=== PATIENT | female | born 1990 | race Caucasian/White ===

== ENCOUNTER 2017-03-28 08:59 | Day surgery (SDC) | payer OTHER ==
[2017-03-28 09:26] VITALS: BMI 34.9
[2017-03-28 09:33] VITALS: BP 120/68; TEMP 98.6
[2017-03-28] MEDS ORDERED: Acetaminophen 500 MG TAB PO PRN (10:32)
--- NOTE | 2017-03-28 10:32 | PDOC.LDHP ---
Labor and Delivery H&P Chief complaint: other HPI: 27 yo @ 37w4d by LMP consistent with 11w4d US presents for iron infusion. She denies any vaginal bleeding, contractions, or vaginal discharge. She does admit to movement. She denies n/v/d. She states she has not been lightheaded or dizzy. She notes that she does have some fatigue. She has no other complaints at this time. Current gestational age (weeks): 37 (37w4d) Due date: 04/14/17 Dating criteria: last menstrual period, first trimester ultrasound Grav: 2 Para: 1 Current complications: gestational diabetes, other (Anemia of ) Current medications: pre-sj vitamins, other (Metformin 500 mg BID) Previous surgical history: none Social history: none - Physical Exam Vital signs reviewed and normal: yes General: NAD Heart: RRR Lungs: CTAB Abdomen: gravid Extremeties: no edema FHT: category 1 [place] contractions every: None present - OB Labs Blood type: A RH: positive Antibody Screen: negative HIV: negative RPR: negative HEPSAg: negative 1 hour GCT: positive 3 hour GTT: positive GBS: unknown Urine drug screen: not done Rubella: immune - Assessment 1. Term Intrauterine 2. Iron deficiency anemia 3. Gestational Diabetes - Plan -: 1. Term Intrauterine -27 yo @ 37w4d by LMP consistent with 11w4d US. -Continue routine care 2. Iron deficiency anemia -Iron transfusion -Recommend outpatient follow up for H&H 3. Gestational Diabetes -Continue Metformin as outpatient -Glucose checks <Tarun Yap - Last Filed: 03/28/17 10:29> <Onelia Killian - Last Filed: 03/29/17 13:09> Allergies/Adverse Reactions: Allergies Allergy/AdvReac Type Severity Reaction Status Date / Time No Known Allergies Allergy Verified 03/28/17 09:20 Attending Addendum - Attending Addendum I personally evaluated the patient and discussed the management with Dr. Yap I agree with the History, Examination, Assessment and Plan documented above with any addition or exceptions noted below. Doing well. Asymptomatic. Not responding to PO iron. Iron infusion completed today without complications. D/C to home. FHT cat 1. No contractions. Routine follow up with PNC. ABrayMD <Onelia Killian - Last Filed: 03/29/17 13:09>
[2017-03-28] MEDS ORDERED: Iron Sucrose Complex 500 MG in Sodium Chloride 0.9% 250 ML 250 ML IVPB SCH (10:45)
[2017-03-28] MEDS ORDERED: Sodium Chloride 0.9% 1,000 ML IV SCH (10:45)
== END 2017-03-28 15:34 | disposition home or self-care (01) ==
LOC: L&D/OP 08:59
PROVIDERS: ATTEND Student in an Organized Health Care Education/Training Program
DX: O99.013 Anemia complicating pregnancy, third trimester (principal); D50.9 Iron deficiency anemia, unspecified; O24.419 Gestational diabetes mellitus in pregnancy, unspecified control; Z79.84 Long term (current) use of oral hypoglycemic drugs; Z79.899 Other long term (current) drug therapy; Z3A.37 37 weeks gestation of pregnancy
CPT/HCPCS: 96361; 96365; 96366; 99283; J1756; J7050

== ENCOUNTER 2017-04-03 09:56 | Inpatient (IN) | payer MEDICAID, OTHER, SELFPAY ==
[2017-04-03 10:33] VITALS: BMI 34.7
[2017-04-03] MEDS ORDERED: Ondansetron HCl/PF 4 MG/2 ML Vial IVP PRN ×2 (11:40→20:27)
[2017-04-03] MEDS ORDERED: Lidocaine 1% (PF) 30 ML VIAL SC PRN (11:40)
[2017-04-03] MEDS ORDERED: Promethazine HCl 25 MG/ML VIAL IM PRN (11:40)
[2017-04-03] MEDS ORDERED: Acetaminophen 500 MG TAB PO PRN (11:40)
[2017-04-03] MEDS ORDERED: Penicillin G Potassium 5 MILL.UNITS in Sodium Chloride 0.9% 100 ML IVPB SCH (11:40)
--- NOTE | 2017-04-03 11:51 | PDOC.LDHP ---
Addendum entered and electronically signed by Tarun aYp MD 04/03/17 11: 55: Patient also on metformin for GDM, will hold. Original Note: Labor and Delivery H&P Chief complaint: contractions HPI: 27 yo @ 38w3d by 11w4d US not consistent with LMP presents with contractions that began early this morning. She states the contractions are 5- 10 minutes apart and are strong enough to take her breath away. She also notes positive movement. She does admit to some slightly bloody vaginal discharge, but no large loss of fluid. She states she had a with her first around the same gestation. She has no other concerns. Current gestational age (weeks): 38 (38w3d) Due date: 04/14/17 Dating criteria: first trimester ultrasound Grav: 2 Para: 1 Current complications: gestational diabetes, other (anemia of ) Abnormal US findings: No Past Medical History: None Current medications: pre-sj vitamins, iron Previous surgical history: none Social history: none - Physical Exam Vital signs reviewed and normal: yes General: NAD, breathing through contractions Heart: RRR Lungs: CTAB Abdomen: gravid Extremeties: no edema FHT: category 1 [place] contractions every: 5 minutes - Vaginal Exam cm dilated: 4 Effacement: 75% Station: -1 - OB Labs Blood type: A RH: positive Antibody Screen: negative HIV: negative RPR: negative HEPSAg: negative 1 hour GCT: positive 3 hour GTT: positive GBS: positive Urine drug screen: not done Rubella: immune - Assessment L&D Assessment: term patient in labor - Plan Plan: admit to L&D, labor augmentation if indicated, GBS antibiotic prophylaxis , anesthesia consult for pain management -: 1. TIUP, latent labor -Admit to L&D for monitoring -q2h cervical checks -Continue routine care 2. Gestational DM -Check glucose levels -hold metformin 3. Anemia of -CBC -Iron supplementation after delivery <Tarun Yap - Last Filed: 04/03/17 11:49> <Cyndy Dorado - Last Filed: 04/03/17 12:54> Allergies/Adverse Reactions: Allergies Allergy/AdvReac Type Severity Reaction Status Date / Time No Known Allergies Allergy Verified 03/28/17 09:20 Attending Addendum - Attending Addendum I personally evaluated the patient and discussed the management with Dr. Yap. I agree with the History, Examination, Assessment and Plan documented above with any addition or exceptions noted below.- 27 year old @ 38.3 weeks by 6 and 11 week USG presented c/o ctx. No LOF. (+) bloody show (+) FM. complicated by GDM on metformin. Afebrile VSS A/P: 1) IUP @ 38.3 weeks in active labor- initial exam 4/75%/-2; recheck 6/C/-1. Admit to L&D; pt desires epidural for pain management. Continue expectant managment. 2) GBS (+)- start PCN prophylaxis. 3) GDM- BG=93; continue to monitor. Marc's 7#8. <Cyndy Dorado - Last Filed: 04/03/17 12:54>
[2017-04-03 12:22] LABS: Mean Corpuscular HGB CONC 32.4 g/dL (32.0-36.0); Mean Corpuscular Hemoglobin 22.1 pg (27.0-31.0); Mean Corpuscular Volume 68.1 fl (81.0-99.0); Mean Platelet Volume 8.4 fL (7.4-10.4); Platelet Count 394 thou/uL (130-400); RBC Distribution Width 16.8 % (11.5-14.5); Red Blood Cell (RBC) Count 4.54 mill/uL (4.20-5.40); White Blood Cell (WBC) Count 11.6 thou/uL (4.8-10.8)
[2017-04-03 12:25] LABS: Syphilis Antibody Nonreactive (Nonreactive); Syphilis Antibody Index 0.05 S/CO (<1.00 Non-Reactive)
[2017-04-03] MEDS ORDERED: Fentanyl 4 mcg/Marc 0.1% Cadd 100 ML ONE (12:26)
[2017-04-03 12:34] LABS: HBSAg Index 0.14 S/CO (0-0.99); Hep B Surf Ag Non-Reactive S/CO (NonReactive)
[2017-04-03] MEDS ORDERED: Eucerin (Mineral Oil/Petrolatum,White) 30 gm Jar TOP PRN (13:15)
[2017-04-03] MEDS ORDERED: Fentanyl 4mcg/Marcaine 0.1% Cassette 100 ML EPIDURAL SCH (13:15)
[2017-04-03] MEDS ORDERED: ePHEDrine/0.9% NaCl/PF SYRINGE 50 mg/10 ml SLOW IVP PRN (13:15)
[2017-04-03] MEDS ORDERED: Lactated Ringer's 500 ML IV PRN (13:15)
[2017-04-03] MEDS ORDERED: Acetaminophen 325 MG TAB PO PRN (13:15)
[2017-04-03] MEDS ORDERED: diphenhydrAMINE 50 MG/ML VIAL IVP PRN (13:15)
[2017-04-03] MEDS ORDERED: Naloxone HCl 0.4 mg/ml Vial IVP PRN ×2 (13:15)
[2017-04-03] MEDS ORDERED: Communication Order-Pharmacy FS SCH (13:15)
--- NOTE | 2017-04-03 13:27 | PDOC.LDPN ---
Labor & Delivery Progress Note - Subjective Subjective: painful contractions - Objective Vital signs reviewed and normal: yes General: NAD, breathing through contractions SVE: Per Nursing staff Dilation: 6 Effacement: 100% Station: -1 FHT: category 1 [place] contractions every: 3-5 minutes Resuscitative measures: maternal oxygen, maternal IV fluids, maternal position change - Assessment (1) Term Code(s): Z34.80 - ENCOUNTER FOR SUPRVSN OF NORMAL , UNSP TRIMESTER Current Visit: Yes Status: Acute Comment: 27 yo @ 38w3d by 11w4d US presents with contractions -GBS + -Will await next cervical check and/or ROM until second dose of penicillin given -Epidural in place -Will await antibiotics until next check. Plan: continue plan of care, resuscitative measures
[2017-04-03] MEDS ORDERED: Lactated Ringer's 1,000 ML IV SCH (13:45)
[2017-04-03] MEDS: Penicillin G 2.5 MILL.units 2.5 MILL.UNITS in Premix Bag 1 BAG IVPB SCH ×2 (16:26→21:36)
[2017-04-03] MEDS: LR / Pitocin 40 units/1000 ml 1,000 ML IV PRN ×2 (17:40→19:43)
--- NOTE | 2017-04-03 18:13 | PDOC.OPDEL ---
OB Operative/Delivery Note Delivery Dr/Surgeon: Christy Assist: José Antonio Yap Pre-Delivery Diagnosis: active labor Procedure/Post Delivery Dx: spontaneous vaginal delivery Weeks gestation: 38 Anesthesia: epidural - Additional Findings/Plan Placenta delivered: spontaneous Repaired Obstetrical Laceration: 2nd degree Estimated blood loss: 300 Compilations/Other Findings: No immediate complications. Post delivery plan: routine recovery ( s/p term to female apgars 9/9. delivered OA. Optimal cord clamping performed. Cord clamped and cut, blood sampled. Placenta delivered via CCT. Uterus firmed with manual massage and IV pitocin. Second degre repaired in the usual fashion with 3-0 chromic. EBL 300 cc. No immediate complications.)
[2017-04-03] MEDS ORDERED: Benzocaine/Menthol 20-0.5% 60 ML CAN TOP PRN (20:27)
[2017-04-03] MEDS ORDERED: LR / Pitocin 40 units/1000 ml 1,000 ML IV SCH (20:27)
[2017-04-03] MEDS ORDERED: Bisacodyl 10 MG SUPP PR PRN (20:27)
[2017-04-03] MEDS ORDERED: Adacel (T-DAP) 0.5 ML VIAL IM ONE (20:27)
[2017-04-03] MEDS ORDERED: Milk Of Magnesia 30 ML UDCUP PO PRN (20:27)
[2017-04-03] MEDS ORDERED: Lanolin Ointment 7 GM TUBE TOP PRN (20:27)
[2017-04-03] MEDS: Ibuprofen 800 MG TAB PO SCH (22:15)
[2017-04-03] MEDS: Docusate (Surfak) 240 MG CAP PO SCH (22:15)
[2017-04-04 05:32] LABS: Hemoglobin 7.9 g/dL (12.0-16.0); Mean Corpuscular HGB CONC 31.6 g/dL (32.0-36.0); Mean Corpuscular Hemoglobin 21.9 pg (27.0-31.0); Mean Corpuscular Volume 69.4 fl (81.0-99.0); Mean Platelet Volume 8.2 fL (7.4-10.4); Platelet Count 318 thou/uL (130-400); RBC Distribution Width 17.4 % (11.5-14.5); White Blood Cell (WBC) Count 15.1 thou/uL (4.8-10.8)
[2017-04-04] MEDS: Ibuprofen 800 MG TAB PO SCH ×3 (05:42→21:10)
[2017-04-04] MEDS: Docusate (Surfak) 240 MG CAP PO SCH ×2 (08:59→21:10)
[2017-04-04] MEDS: Ferrous Sulfate 325 MG TAB PO SCH ×2 (08:59→17:02)
--- NOTE | 2017-04-04 11:08 | PDOC.PP ---
Post Progress Note Post Day #: 1 Subjective: no concerns. ambulating well. encouraged . PO intake tolerated: yes Flatus: yes Ambulation: yes Vital Signs (12 hours) Temp Pulse Resp BP 04/04/17 08:03 98.4 F 75 20 99/54 L 04/04/17 07:40 98.4 F 75 20 04/04/17 05:40 98.0 F 83 18 108/55 L 04/03/17 23:52 98.4 F 96 20 109/58 L Weight Weight 94.801 kg - Physical Examination General: NAD Cardiovascular: no m/r/g, RRR Respiratory: clear to auscultation bilaterally, non-labored breathing Abdominal: + bowel sounds, lochia, no distention, appropriately TTP Fundus firm & at: umbilicus Extremities: negative homans (B) Neurological: no gross focal deficits Psychiatric: A&Ox3, normal affect Result Diagrams: 04/04/17 05:05 Additional Labs: Post Labs Blood Type A POSITIVE 04/03/17 11:15 Hep Bs Antigen Non-Reactive S/CO (NonReactive) 04/03/17 11:15 (1) Term Code(s): Z34.80 - ENCOUNTER FOR SUPRVSN OF NORMAL , UNSP TRIMESTER Status: Acute Comment: 27 yo @ 38w3d by 11w4d US presents with contractions delivered at 1736 on 04/03/17 s/p 2nd degree lac repair. - pain controlled - well - plan for d/c today if baby stable for d/c - f/u 2 weeks at [facility]. discussed control options but will be limited due to insurance. (2) GBS (group B Streptococcus carrier), +RV culture, currently Code(s): O99.820 - STREPTOCOCCUS B CARRIER STATE COMPLICATING Status : Acute Comment: s/p PCN x2 doses (3) Anemia affecting Code(s): O99.019 - ANEMIA COMPLICATING , UNSPECIFIED TRIMESTER Status : Acute QualifierTitle: Trimester: third trimester Qualified Code(s): O99.013 - Anemia complicating , third trimester Comment: H&H at baseline. received iron infusion approx 1 week prior to delivery. (4) GDM, class A2 Code(s): O24.419 - GESTATIONAL DIABETES MELLITUS IN , UNSP CONTROL Status: Acute Comment: glucose well controlled. - continue meformin until follow up visit. <Moo Payne - Last Filed: 04/04/17 11:05> Vital Signs (12 hours) Temp Pulse Resp BP 04/04/17 12:00 97.9 F 77 20 04/04/17 11:51 97.9 F 77 20 109/67 04/04/17 08:03 98.4 F 75 20 99/54 L 04/04/17 07:40 98.4 F 75 20 04/04/17 05:40 98.0 F 83 18 108/55 L Weight Weight 94.801 kg Result Diagrams: 04/04/17 05:05 Additional Labs: Post Labs Blood Type A POSITIVE 04/03/17 11:15 Hep Bs Antigen Non-Reactive S/CO (NonReactive) 04/03/17 11:15 <Sp Salvador - Last Filed: 04/04/17 14:48> Attending Addendum - Attending Addendum I personally evaluated the patient and discussed the management with Dr. Payne. I agree with the History, Examination, Assessment and Plan documented above with any addition or exceptions noted below. Possible discharge later today. <Sp Salvador - Last Filed: 04/04/17 14:48>
[2017-04-05] MEDS: Ibuprofen 800 MG TAB PO SCH (06:15)
--- NOTE | 2017-04-05 08:06 | PDOC.PP ---
Post Progress Note Post Day #: 2 Subjective: Feeling well. Denies pain. Ready to go home. PO intake tolerated: yes Flatus: yes Ambulation: yes Vital Signs (12 hours) Temp Pulse Resp BP 04/04/17 21:25 98.7 F 87 20 114/63 Weight Weight 94.801 kg - Physical Examination General: NAD Cardiovascular: no m/r/g, RRR Respiratory: clear to auscultation bilaterally, non-labored breathing Abdominal: + bowel sounds, no distention, appropriately TTP Extremities: negative homans (B) Neurological: no gross focal deficits Psychiatric: A&Ox3, normal affect Result Diagrams: 04/04/17 05:05 Additional Labs: Post Labs Blood Type A POSITIVE 04/03/17 11:15 Hep Bs Antigen Non-Reactive S/CO (NonReactive) 04/03/17 11:15 (1) Term Code(s): Z34.80 - ENCOUNTER FOR SUPRVSN OF NORMAL , UNSP TRIMESTER Status: Acute Comment: 27 yo @ 38w3d by 11w4d US presents with contractions delivered at 1736 on 04/03/17 s/p 2nd degree lac repair. - pain controlled with Ibprofen - well - plan for d/c today - f/u 2 weeks at [facility]. discussed control options but will be limited due to insurance. (2) GBS (group B Streptococcus carrier), +RV culture, currently Code(s): O99.820 - STREPTOCOCCUS B CARRIER STATE COMPLICATING Status : Acute Comment: s/p PCN x2 doses (3) Anemia affecting Code(s): O99.019 - ANEMIA COMPLICATING , UNSPECIFIED TRIMESTER Status : Acute QualifierTitle: Trimester: third trimester Qualified Code(s): O99.013 - Anemia complicating , third trimester Comment: H&H at baseline. received iron infusion approx 1 week prior to delivery. (4) GDM, class A2 Code(s): O24.419 - GESTATIONAL DIABETES MELLITUS IN , UNSP CONTROL Status: Acute Comment: glucose well controlled. - continue meformin until follow up visit. <Moo Payne - Last Filed: 04/05/17 08:04> Vital Signs (12 hours) Temp Pulse Resp BP 04/05/17 12:09 97.8 F 80 20 120/70 04/05/17 08:10 98.2 F 71 20 04/05/17 08:06 98.2 F 71 20 112/61 Weight Weight 94.801 kg Result Diagrams: 04/04/17 05:05 Additional Labs: Post Labs Blood Type A POSITIVE 04/03/17 11:15 Hep Bs Antigen Non-Reactive S/CO (NonReactive) 04/03/17 11:15 <Sp Salvador - Last Filed: 04/05/17 13:09> Attending Addendum - Attending Addendum I personally evaluated the patient and discussed the management with Dr. Jackson. I agree with the History, Examination, Assessment and Plan documented above with any addition or exceptions noted below. Stable for discharge. <Sp Salvador - Last Filed: 04/05/17 13:09>
[2017-04-05] MEDS: Ferrous Sulfate 325 MG TAB PO SCH (08:07)
[2017-04-05] MEDS: Docusate (Surfak) 240 MG CAP PO SCH (08:07)
[2017-04-05] MEDS ORDERED: Acetaminophen 1,000 MG in Premix Bag 1 BAG IVPB PRN (10:19)
[2017-04-05] MEDS ORDERED: Oseltamivir 75 MG CAP PO SCH ×3 (10:20→21:00)
[2017-04-05] MEDS ORDERED: Acetaminophen 1,000 MG in Premix Bag 1 BAG IVPB SCH (11:15)
[2017-04-05] MEDS ORDERED: Ampicillin 2 GM in Sodium Chloride 0.9% 100 ML IVPB SCH (12:00)
[2017-04-05 12:10] VITALS: BP 120/70; TEMP 97.8
== END 2017-04-05 13:05 | disposition home or self-care (01) | DRG 775 ==
LOC: L&D/OP 09:56 → L&D 11:02 → 3SW 20:07
PROVIDERS: ADMIT Family Medicine; ATTEND Family Medicine
PROC: 10E0XZZ Delivery of Products of Conception, External Approach (ICD-10-PCS; principal; 2017-04-03)
PROC: 3E0234Z Introduction of Serum, Toxoid and Vaccine into Muscle, Percutaneous Approach (ICD-10-PCS; 2017-04-05)
DX: O24.425 Gestational diabetes mellitus in childbirth, controlled by oral hypoglycemic drugs (principal); O70.1 Second degree perineal laceration during delivery; O99.824 Streptococcus B carrier state complicating childbirth; Z3A.38 38 weeks gestation of pregnancy; Z37.0 Single live birth; O76 Abnormality in fetal heart rate and rhythm complicating labor and delivery
CPT/HCPCS: 36415; 36416; 51702; 76815; 85027; 86780; 87340; 90715; 99285; J2001; J2540; J7050

== ENCOUNTER 2017-04-21 11:05 | Emergency (ER) | payer MEDICAID | END 2017-04-21 12:15 | disposition home or self-care (01) | LOC: ERS 11:05 | DX: J11.1 Influenza due to unidentified influenza virus with other respiratory manifestations (principal) | CPT/HCPCS: 99283 ==

== ENCOUNTER 2017-06-12 19:48 | Emergency (ER) | payer OTHER, SELFPAY ==
[2017-06-12] MEDS ORDERED: Acetaminophen 500 MG TAB ONE (20:09)
[2017-06-12] MEDS ORDERED: Dexamethasone 4 mg/ml Vial ONE (20:51)
[2017-06-12] MEDS ORDERED: Bicillin LA 1.2 MILLION UNITS/2 ML SYRINGE ONE (20:51)
== END 2017-06-12 21:20 | disposition home or self-care (01) ==
LOC: ERS 19:48
DX: J02.0 Streptococcal pharyngitis (principal)
CPT/HCPCS: 96372; J0561; J1100

== ENCOUNTER 2018-01-16 09:16 | Emergency (ER) | payer OTHER, SELFPAY ==
[2018-01-16 09:46] LABS: #Basophils 0.1 thou/uL (0.0-0.2); #Eosinphils 0.3 thou/uL (0.0-0.7); #Lymphocytes 3.8 thou/uL (1.20-3.40); #Monocytes 0.7 thou/uL (0.11-0.59); #Neutrophils 7.3 thou/uL (1.40-6.50); %Basophils 0.6 % (0.0-1.0); %Eosinophils 2.1 % (0.0-10.0); %Lymphocytes 31.5 % (21.0-51.0); %Monocytes 5.7 % (0.0-10.0); %Neutrophils 60.1 % (42.0-75.0); Mean Corpuscular HGB CONC 32.2 g/dL (32.0-36.0); Mean Corpuscular Volume 74.7 fL (78.0-98.0); Mean Platelet Volume 7.5 fL (7.4-10.4); Platelet Count 451 thou/uL (130-400); RBC Distribution Width 14.2 % (11.5-14.5); Red Blood Cell (RBC) Count 4.99 mill/uL (4.20-5.40); White Blood Cell (WBC) Count 12.1 thou/uL (4.8-10.8)
[2018-01-16] MEDS ORDERED: Morphine 4 MG/ML VIAL ONE (09:55)
[2018-01-16] MEDS ORDERED: Ondansetron HCl/PF 4 MG/2 ML Vial ONE (09:56)
[2018-01-16 10:01] LABS: MDiff Complete? YES; Microcytosis SLIGHT = 6-15 cells (100X) (0-5/hpf); PLT Morphology Comment Appears Increased; Polychromasia SLIGHT = 2-3 cells (100X) (0-2/hpf)
[2018-01-16 10:10] LABS: ALT (SGPT) 16 U/L (8-55); AST (SGOT) 17 U/L (5-34); Albumin 4.2 g/dL (3.5-5.0); Alkaline Phosphatase 89 U/L (40-150); Anion Gap 16 mmol/L (10-20); BUN (Urea Nitrogen) 14 mg/dL (7.0-18.7); Bilirubin, Total 0.4 mg/dL (0.2-1.2); Calc. Creatinine Clearance 0 mL/min (70-130); Carbon Dioxide 18 mmol/L (22-29); Chloride 106 mmol/L (98-107); Estimated GFR-MDRD 86; Globulin 4.3 g/dL (2.4-3.5); Glucose 146 mg/dL (70-105); Lipase 40 U/L (8-78); Potassium 3.8 mmol/L (3.5-5.1); Protein, Total 8.5 g/dL (6.0-8.3); Sodium 136 mmol/L (136-145)
[2018-01-16 11:36] LABS: Bilirubin Negative (Negative); Blood, Urine Large (Negative); Clarity CLOUDY (Clear); Glucose, Urine (Dipstick) Negative (Negative); Leukocyte Small (Negative); Nitrite Negative (Negative); Protein, Urine (Dipstick) 30 mg/dL (Neg-Trace); Specific Gravity, Urine 1.019 (1.002-1.036); Urobilinogen 0.2 mg/dL (0.2-1.0); pH, Urine 5.5 (5.0-9.0)
[2018-01-16 11:43] LABS: Pregnancy Test - Urine (BHCG) Negative (Negative); Pregu Control Background? CLEAR/WHITE (CLR/WHITE); Pregu Control Bar Appear? YES (CONTROL BAR); Specific Gravity 1.019 (1.002-1.036)
[2018-01-16 11:48] LABS: Bacteria/HPF None Seen HPF (None Seen); Hyaline Casts/LPF 4-6 HYALINE CAST LPF (0-3 Hyaline); Pathc Cast-AUWi Flag 0.87 (0-2.49); RBC/HPF GREATER THAN 50-TNTC HPF (0-3)
--- NOTE | 2018-01-16 12:24 | CT ---
CT OF ABDOMEN AND PELVIS PERFORMED WITHOUT CONTRAST ENHANCEMENT: Date: 01/16/18 HISTORY: Left-sided abdomen pain. History of kidney stones. COMPARISON: 09/06/13. FINDINGS: The lung bases are clear. There are diffuse fatty changes of the liver. It measures 22 cm in length. The spleen is 10.3 cm. Gregory creas region is unremarkable. There is some foci of subtle increased attenuation of the gallbladder w hich could indicate gallstones. Right and left adrenal glands are normal in appearance. The right and left kidneys are normal in size . There is some mild left-sided hydronephrosis and hydroureter related to a left ureteral calculus lo cated at approximately the L5 level. This measures in the 5-6 mm range. No additional left renal calc tano are seen. There is what appears to be a punctate upper pole right renal calculus, nonobstructing. No significant periaortic or mesenteric adenopathy. CT of pelvis was performed without contrast enhancement. No evidence of adenopathy, mass, or free flu id. Appendix is difficult to definitively identify, but no inflammatory process. IMPRESSION: 1. Approximately 6.0 mm left ureteral calculus located at approximately the L5 level causing left-si ded hydronephrosis and hydroureter. 2. Diffuse fatty changes of the liver. 3. Possible gallstones. Ultrasound suggested for assessment of this. POS: [facility]
[2018-01-16] MEDS ORDERED: HYDROcodone/Acetaminophen 5/325 mg Tablet ONE (12:40)
== END 2018-01-16 12:52 | disposition home or self-care (01) ==
LOC: ERS 09:16
DX: N13.2 Hydronephrosis with renal and ureteral calculous obstruction (principal)
CPT/HCPCS: 36415; 74176; 80053; 81003; 81015; 81025; 83690; 85025; 96361; 96374; 96375; J2270; J2405

== ENCOUNTER 2018-04-18 08:35 | Emergency (ER) | payer SELFPAY ==
[2018-04-18] MEDS ORDERED: Ondansetron PF 4 MG/2 ML Vial ONE (08:54)
[2018-04-18] MEDS ORDERED: Morphine 4 MG/ML VIAL ONE (08:54)
[2018-04-18 09:03] LABS: #Basophils 0.1 thou/uL (0.0-0.2); #Eosinphils 0.1 thou/uL (0.0-0.7); #Lymphocytes 4.2 thou/uL (1.20-3.40); #Monocytes 0.4 thou/uL (0.11-0.59); #Neutrophils 5.3 thou/uL (1.40-6.50); %Basophils 0.9 % (0.0-1.0); %Eosinophils 0.9 % (0.0-10.0); %Lymphocytes 41.6 % (21.0-51.0); %Monocytes 3.9 % (0.0-10.0); %Neutrophils 52.7 % (42.0-75.0); Mean Corpuscular HGB CONC 32.5 g/dL (32.0-36.0); Mean Corpuscular Hemoglobin 23.2 pg (27.0-31.0); Mean Corpuscular Volume 71.6 fL (78.0-98.0); Mean Platelet Volume 7.3 fL (7.4-10.4); Platelet Count 420 thou/uL (130-400); RBC Distribution Width 14.2 % (11.5-14.5); Red Blood Cell (RBC) Count 4.74 mill/uL (4.20-5.40)
[2018-04-18 09:23] LABS: Hypochromia SLIGHT = 6-15 cells (100X) (0-5/hpf); MDiff Complete? YES; Microcytosis SLIGHT = 6-15 cells (100X) (0-5/hpf); Polychromasia SLIGHT = 2-3 cells (100X) (0-2/hpf)
[2018-04-18 09:28] LABS: ALT (SGPT) 9 U/L (8-55); AST (SGOT) 10 U/L (5-34); Albumin 3.8 g/dL (3.5-5.0); Alkaline Phosphatase 77 U/L (40-150); Anion Gap 16 mmol/L (10-20); BUN (Urea Nitrogen) 11 mg/dL (7.0-18.7); Bilirubin, Total 0.3 mg/dL (0.2-1.2); Calc. Creatinine Clearance 0 mL/min (70-130); Carbon Dioxide 17 mmol/L (22-29); Chloride 107 mmol/L (98-107); Estimated GFR-MDRD Greater than 90; Globulin 3.9 g/dL (2.4-3.5); Glucose 140 mg/dL (70-105); Potassium 3.8 mmol/L (3.5-5.1); Protein, Total 7.7 g/dL (6.0-8.3); Sodium 136 mmol/L (136-145)
--- NOTE | 2018-04-18 10:47 | ULT ---
ULTRASOUND RETROPERITONEUM COMPLETE: (RENAL) DATE: 04-18-18 HISTORY: 28-year-old female with left flank pain. FINDINGS: Right kidney: 11.5 x 4.5 x 5 cm. Left kidney: 12 x 6 x 5 cm. No right sided hydronephrosis. Mild dilation of the left renal collecting system and proximal left ureter. Bilateral renal parenchymal echogenicity and parenchymal thickness are normal. No moderate sized or large renal cysts or solid mass identified. Urinary bladder is nearly empty, and therefore it is difficult to evaluate for ureteral jets. Incidentally, there is an intrauterine gestational sac at the fundus measuring at least 2.3 cm in gre atest dimension. This was not evaluated in detail. Incidental finding of a mobile gallstone at the gallbladder fundus measuring at least [address] dimension. No pericholecystic edema. IMPRESSION: 1. Mild left hydronephrosis. 2. First trimester intrauterine gestational sac, not evaluated in detail. 3. Cholelithiasis. TEODORO Morelos POS: [facility]
[2018-04-18 10:48] LABS: Bilirubin Negative (Negative); Blood, Urine Small (Negative); Glucose, Urine (Dipstick) Negative (Negative); Leukocyte Trace (Negative); Nitrite Negative (Negative); Protein, Urine (Dipstick) Negative (Neg-Trace); Specific Gravity, Urine 1.025 (1.005-1.030); Urobilinogen 0.2 mg/dL (0.2-1.0)
[2018-04-18 10:55] LABS: Clarity Hazy (Clear)
--- NOTE | 2018-04-18 10:55 | ULT ---
ULTRASOUND PELVIS DOPPLER DUPLEX: Date: 04/18/18 HISTORY: 28-year-old female with left-sided pelvic pain and positive test. Rule out ectopic pregnanc y. TECHNIQUE: Transabdominal transducer was used to evaluate the intrapelvic contents using Robbins scale, color flow, and spectral analysis. FINDINGS: There is an intrauterine gestational sac with mean sac diameter of 2.3 cm. It contains an embryonic p ole with crown-rump length of 1.0 cm, corresponding to 7w 0d +/- 4d. EDC: 12/05/2018. LMP: 02/25/2018. Gestational age by LMP: 7w 3d. There is no evidence of subchorionic hemorrhage. Embryonic heart rate: 150 bpm. No free fluid in the cul-de-sac. Right ovary: 2 x 3 x 2 cm. Left ovary: 3 x 2 cm. Blood flow demonstrated in both ovaries by Doppler. No corpus luteal cyst visualized. Urinary bladder is nearly empty. IMPRESSION: Live first trimester intrauterine gestation estimated to be 7 weeks 0 days gestational age. POS: [facility]
[2018-04-18 10:58] LABS: Bacteria/HPF 1+ HPF (None Seen); Hyaline Casts/LPF 0-3 HYALINE CAST LPF (0-3 Hyaline)
[2018-04-23 20:10] LABS: Chlamydia trachomatis by NAA Negative (Negative)
== END 2018-04-18 11:33 | disposition home or self-care (01) ==
LOC: ERS 08:35
DX: O99.89 Other specified diseases and conditions complicating pregnancy, childbirth and the puerperium (principal); N13.2 Hydronephrosis with renal and ureteral calculous obstruction; O23.11 Infections of bladder in pregnancy, first trimester; Z3A.01 Less than 8 weeks gestation of pregnancy
CPT/HCPCS: 36415; 76770; 76856; 80053; 81003; 81015; 84702; 85025; 86900; 86901; 87491; 87591; 93976; 96361; 96374; 96375; J2270; J2405

== ENCOUNTER 2018-05-23 19:07 | Emergency (ER) | payer MEDICAID, SELFPAY ==
[2018-05-23] MEDS ORDERED: Ondansetron PF 4 MG/2 ML Vial ONE (20:57)
[2018-05-23] MEDS ORDERED: Acetaminophen 500 MG TAB ONE (20:57)
[2018-05-23 21:24] LABS: #Basophils 0.1 thou/uL (0.0-0.2); #Eosinphils 0.4 thou/uL (0.0-0.7); #Lymphocytes 5.1 thou/uL (1.20-3.40); #Monocytes 0.9 thou/uL (0.11-0.59); #Neutrophils 6.4 thou/uL (1.40-6.50); %Basophils 0.7 % (0.0-1.0); %Eosinophils 3.1 % (0.0-10.0); %Lymphocytes 39.5 % (21.0-51.0); %Monocytes 6.7 % (0.0-10.0); Hemoglobin 11.2 g/dL (12.0-16.0); Mean Corpuscular HGB CONC 32.8 g/dL (32.0-36.0); Mean Platelet Volume 7.6 fL (7.4-10.4); Platelet Count 416 thou/uL (130-400); RBC Distribution Width 14.2 % (11.5-14.5); Red Blood Cell (RBC) Count 4.69 mill/uL (4.20-5.40); White Blood Cell (WBC) Count 12.8 thou/uL (4.8-10.8)
[2018-05-23 21:49] LABS: ALT (SGPT) Less than 7 U/L (8-55); AST (SGOT) 10 U/L (5-34); Alkaline Phosphatase 68 U/L (40-150); Anion Gap 14 mmol/L (10-20); BUN (Urea Nitrogen) 5 mg/dL (7.0-18.7); Bilirubin, Total 0.2 mg/dL (0.2-1.2); Calc. Creatinine Clearance 0 mL/min (70-130); Calcium 9.6 mg/dL (7.8-10.44); Carbon Dioxide 22 mmol/L (22-29); Chloride 104 mmol/L (98-107); Estimated GFR-MDRD Greater than 90; Globulin 4.2 g/dL (2.4-3.5); Glucose 95 mg/dL (70-105); Potassium 3.9 mmol/L (3.5-5.1); Protein, Total 8.2 g/dL (6.0-8.3); Sodium 136 mmol/L (136-145)
[2018-05-23 23:09] LABS: Bilirubin Negative (Negative); Blood, Urine Negative (Negative); Clarity CLEAR (Clear); Glucose, Urine (Dipstick) Negative (Negative); Leukocyte Trace (Negative); Nitrite Negative (Negative); Protein, Urine (Dipstick) Negative (Neg-Trace); Specific Gravity, Urine 1.005 (1.002-1.036); Urobilinogen 0.2 mg/dL (0.2-1.0); pH, Urine 6.5 (5.0-9.0)
--- NOTE | 2018-05-23 23:10 | CT ---
CT OF BRAIN WITHOUT CONTRAST: 05/23/18 HISTORY: Headache. FINDINGS: No evidence of infarct, hemorrhage, midline shift or abnormal extra-axial fluid collections are seen. The ventricular size is normal and the basilar cisterns patent. the bony calvarium is intact. There is mucosal disease in the paranasal sinuses. IMPRESSION: 1. No CT evidence of acute intracranial process. 2. Paranasal sinus disease. POS: [facility]
[2018-05-23 23:11] LABS: Bacteria/HPF None Seen HPF (None Seen); Hyaline Casts/LPF 0-3 HYALINE CAST LPF (0-3 Hyaline); RBC/HPF 0-3 HPF (0-3); Squamous Epithelial 0-3 HPF (0-3); WBC/HPF 0-3 HPF (0-3)
[2018-05-23] MEDS ORDERED: Metoclopramide HCl 10 MG/2 ML VIAL ONE (23:23)
[2018-05-24 00:58] LABS: CSF Source CSF; Clarity Clear (Clear); RBC Count - Manual 1 /cumm (None Seen); Tube # 1; WBC/NonHematics Count - Manual 0 /cumm (0-5)
[2018-05-24 00:59] LABS: CSF Source CSF; Clarity Clear (Clear); RBC Count - Manual 0 /cumm (None Seen); Tube # 4; WBC/NonHematics Count - Manual 2 /cumm (0-5)
[2018-05-24 01:03] LABS: Color Of CSF Supernatant COLORLESS (Colorless); Tube # 2; Unspun CSF Color COLORLESS (Colorless)
[2018-05-24 01:06] LABS: CSF, Glucose 56 mg/dl (40-70); CSF, Protein 18 mg/dL (15-40)
== END 2018-05-24 01:33 | disposition home or self-care (01) ==
LOC: ERS 19:07
DX: O99.89 Other specified diseases and conditions complicating pregnancy, childbirth and the puerperium (principal); R51 Headache; Z3A.12 12 weeks gestation of pregnancy
CPT/HCPCS: 62270; 70450; 80053; 81003; 81015; 82945; 84157; 85025; 87070; 87205; 87804; 89051; 94760; 96361; 96374; 96375; J2405; J2765

== ENCOUNTER 2018-05-25 10:19 | Emergency (ER) | payer MEDICAID, OTHER ==
[2018-05-25] MEDS ORDERED: diphenhydrAMINE 50 MG/ML VIAL ONE (10:49)
[2018-05-25] MEDS ORDERED: Dexamethasone 4 mg/ml Vial ONE (10:49)
== END 2018-05-25 12:03 | disposition home or self-care (01) ==
LOC: ERS 10:19
DX: O99.511 Diseases of the respiratory system complicating pregnancy, first trimester (principal); J32.9 Chronic sinusitis, unspecified; Z3A.12 12 weeks gestation of pregnancy
CPT/HCPCS: 96361; 96374; 96375; J1100; J1200

== ENCOUNTER 2018-09-06 09:27 | Day surgery (SDC) | payer OTHER ==
[2018-09-06] MEDS ORDERED: Acetaminophen 500 MG TAB PO SCH (09:45)
[2018-09-06] MEDS ORDERED: Iron Sucrose Complex 200 MG in Sodium Chloride 0.9% 250 ML 250 ML IVPB SCH ×2 (09:45→13:15)
[2018-09-06] MEDS ORDERED: Sodium Chloride 0.9% 1,000 ML IV SCH (09:45)
[2018-09-06] MEDS ORDERED: Iron, Sodium Ferric Gluconate 250 MG in Sodium Chloride 0.9% 100 ML IVPB SCH (09:45)
--- NOTE | 2018-09-06 11:18 | PDOC.LDHP ---
Labor and Delivery H&P Chief complaint: other (iron transfusion) HPI: 28 yo @ 27.1 by LMP/1T sono here for iron transufsion. Current gestational age (weeks): 27 (27.1) Dating criteria: last menstrual period, first trimester ultrasound Grav: 3 Para: 2 OB History Details: 2 term , 1st complicated by preE Current complications: gestational diabetes Current medications: pre-js vitamins, other Allergies/Adverse Reactions: Allergies Allergy/AdvReac Type Severity Reaction Status Date / Time No Known Allergies Allergy Verified 03/28/17 09:20 Social history: none - Physical Exam Vital signs reviewed and normal: yes General: NAD Heart: RRR Lungs: CTAB Abdomen: NTTP [place] contractions every: reactive, reassuring - OB Labs Blood type: A RH: positive Antibody Screen: negative HIV: negative RPR: negative HEPSAg: negative 1 hour GCT: positive GBS: unknown Rubella: immune - Plan -: Anemia of -iron transfusion today -monitor and likely d/c home -f/u Dr. Warner this week -continue home iron PO A1GDM -reports good home sugars -continue monitoring and diet /CC count sIUP, -continue routine care Hx of preE -continue home ASA Dispo: D/c after iron transfusion Addendum - Attending - Attending Attestation Date/Time: 09/08/18 2430 I personally evaluated the patient and discussed the management with Dr. Duarte on day of service. I agree with the History, Examination, Assessment and Plan documented above with any addition or exceptions noted below.
[2018-09-06] MEDS ORDERED: Iron Sucrose Complex 500 MG in Sodium Chloride 0.9% 250 ML 250 ML IVPB SCH (13:15)
== END 2018-09-06 17:00 | disposition home or self-care (01) ==
LOC: SDC 09:27 → L&D/OP 17:00
PROVIDERS: ATTEND Emergency Medicine
DX: O99.012 Anemia complicating pregnancy, second trimester (principal); D64.9 Anemia, unspecified; O24.419 Gestational diabetes mellitus in pregnancy, unspecified control; Z3A.27 27 weeks gestation of pregnancy; Z79.899 Other long term (current) drug therapy
CPT/HCPCS: 96361; 96365; 96366; J1756; J2916; J3490; J7050

== ENCOUNTER 2018-11-04 10:36 | Day surgery (SDC) | payer OTHER ==
[2018-11-04] MEDS ORDERED: Iron Sucrose Complex 500 MG in Sodium Chloride 0.9% 250 ML 250 ML IVPB SCH (11:11)
[2018-11-04] MEDS ORDERED: Acetaminophen 500 MG TAB PO PRN (11:11)
[2018-11-04 11:26] VITALS: BMI 35.5
[2018-11-04] MEDS ORDERED: Sodium Chloride 0.9% 1,000 ML IV SCH (11:45)
[2018-11-04 12:34] LABS: ALT (SGPT) Less than 7 U/L (8-55); AST (SGOT) 10 U/L (5-34); Albumin 2.9 g/dL (3.5-5.0); Alkaline Phosphatase 91 U/L (40-150); Anion Gap 11 mmol/L (10-20); BUN (Urea Nitrogen) 6 mg/dL (7.0-18.7); Bilirubin, Total 0.3 mg/dL (0.2-1.2); Calc. Creatinine Clearance 217 mL/min (70-130); Calcium 8.7 mg/dL (7.8-10.44); Carbon Dioxide 23 mmol/L (22-29); Chloride 106 mmol/L (98-107); Estimated GFR-MDRD Greater than 90; Glucose 173 mg/dL (70-105); Potassium 3.8 mmol/L (3.5-5.1); Protein, Total 5.9 g/dL (6.0-8.3); Sodium 136 mmol/L (136-145)
--- NOTE | 2018-11-04 12:37 | ULT ---
NONSTRESS BIOPHYSICAL PROFILE: HISTORY: Class B diabetes. COMPARISON: None. TECHNIQUE: A non-stress biophysical profile is performed. FINDINGS: A single intrauterine gestation with heart tones at a rate of 143 beats per minute. Cephalic presentation. Limited evaluation of the cervix due to shadowing. Amniotic fluid index is 11.3 cm. NONSTRESS BIOPHYSICAL PROFILE: movement: 2 tone: 2 breathing movements: 2 Amniotic fluid: 2 TOTAL SCORE: 8/8 IMPRESSION: Nonstress biophysical profile with a total score of 8/8. POS: OFF
--- NOTE | 2018-11-04 13:55 | PDOC.FPROB ---
FMR OB H&P: HPI - History of Present Illness Chief Complaint: Requiring Iron infusion for [place] History of Present Illness: 28 y/o female, , at 35.6 weeks dated by LMP confirmed by 12.6 sono, is here today after being sent over from [facility] by Dr. Killian for an Iron transfusion. Pt has a PMHx of Class B DM, previously diet controlled, but now requiring meds after her appointment with Dr. Killian today. She states she has been feeling fatigued a few days out of the week, but not all the time. Patient denies any loss of fluids per vagina, vaginal bleeding, vaginal discharge, or consistent contractions. She states she has "Giovanni-rolon" early in the morning and late in the evening sometimes. Last vaginal intercourse was on Saturday, X2 days ago. Primary Care Physician: Dr. Warner. [facility] FMR OB H&P: Current - Care : 3 Para: 2 Gestational age: 35.6 Dating Criteria: LMP confirmed by 12.6 wk sono Course/Complications: Class B DM, starting metformin tomorrow. - OB Labs Blood type: A RH: positive Antibody Screen: negative HIV: negative RPR: negative HepBsAg: negative Rubella: immune Gonorrhea: negative Chlamydia: negative A1c: 6.0 (11/04) GBS: unknown FMR OB H&P: History - Past Medical History PMH: Obesity, BMI 35.5 Gallstones Kidney Stones Class B gestational DM, now requiring medications. - OB History OB History: X2 prior vaginal deliveries, no complications. - Surgical History Sx History: none - Social History Social History: Denies alcohol, tobacco or drug use. - Family History Family History: Sister with congenital heart defect, with VSD. Osteogensis imperfecta esophageal atresia FMR OB H&P: Medications - Current Home Medications: Medication Instructions Recorded Confirmed Type No122/Iron/Folic Acid 1 each PO DAILY #30 tablet 04/04/17 11/04/18 Rx [ Multi Tablet] Aspirin [Ecotrin Low Strength] 81 mg PO DAILY 09/06/18 11/04/18 History Ferrous Sulfate [Iron] 325 mg PO DAILY 09/06/18 11/04/18 History Allergies/Adverse Reactions: Allergies Allergy/AdvReac Type Severity Reaction Status Date / Time No Known Allergies Allergy Verified 11/04/18 11:16 FMR OB H&P: ROS - Review of Systems General: reports: fatigue. denies: fever/chills Eyes: denies: eye pain, vision changes ENT: reports: nasal congestion (in the morngings, that alleviates throughout the day.). denies: rhinorrhea, sore throat Cardiovascular: reports: edema (swelling in feet, worse at end of the day.). denies: chest pain, palpitation Respiratory: denies: cough, congestion, shortness of breath Gastrointestinal: denies: abdominal pain, nausea, vomiting, diarrhea Genitourinary (Female): reports: contractions (few infrequent "giovanni-rolon"). denies: incontinence, dysuria, hematuria, polyuria, vaginal discharge, vaginal pain, vaginal bleeding Musculoskeletal: denies: pain, tenderness Neurologic: reports: headache (alleviated by eating a meal in the morning.). denies: syncope Integumentary: denies: itching, rash Endocrine: denies: polydipsia FMR OB H&P: Vital Signs - Maternal Vital signs: BP: 124/79 - Heart Tones Baseline: 140 (reactive ) Variability: moderate [place] contractions every: no contractions FMR OB H&P: Physical Exam - Physical Exam General: NAD, awake, alert and oriented HEENT: normocephalic and atraumatic, EOMI, MMM, conjunctiva clear, no scleral icterus, grossly normal vision, grossly normal hearing Neck: supple, trachea midline, no JVD Chest: non-tender to palpation, no lesions Heart: RRR, normal S1/S2, no murmurs/rubs/gallops, pulses present General: CTAB, no respiratory distress, good air movement, no rales/rhonchi, no wheezing, no retractions Abdomen: soft, gravid, non-tender, bowel sound present, no masses, no hernias Musculoskeletal: normal gait and station, pulses present, FROM in all four extremities, no misalignment/asymmetry, no atrophy Neurological: DTR +2, strength +5, no focal deficit Skin: no rash, no jaundice Lymphatic: no unusual bruising or bleeding, no purpura, no petechia Psychiatric: intact recent and remote memory, good judgement and insight, normal mood and affect FMR OB H&P: Results - Labs Lab results: Laboratory Results - last 24 hr 11/04/18 11/04/18 11:49 11:49 Sodium 136 Potassium 3.8 Chloride 106 Carbon Dioxide 23 Anion Gap 11 BUN 6 L Creatinine 0.62 Estimated GFR (MDRD) Greater than 90 Glucose 173 H Hemoglobin A1c 6.0 Calcium 8.7 Total Bilirubin 0.3 AST 10 ALT Less than 7 L Alkaline Phosphatase 91 Serum Total Protein 5.9 L Albumin 2.9 L Globulin 3.0 Albumin/Globulin Ratio 1.0 L FMR OB H&P: A/P - Problem List (1) Anemia affecting Current Visit: No Status: Acute Code(s): O99.019 - ANEMIA COMPLICATING , UNSPECIFIED TRIMESTER Qualifiers: Trimester: third trimester Qualified Code(s): O99.013 - Anemia complicating , third trimester Comment: H&H at baseline. received iron infusion approx 1 week prior to delivery. (2) Third trimester Current Visit: Yes Status: Acute Code(s): Z34.93 - ENCNTR FOR SUPRVSN OF NORMAL PREG, UNSP, THIRD TRIMESTER (3) Modified White class B pregestational diabetes mellitus Current Visit: Yes Status: Acute Code(s): O24.319 - UNSP PRE-EXISTING DIABETES IN , UNSP TRIMESTER Disposition: d/c pending iron transfusion completion. Discussion: Date/Time: 11/04/18 1350 28 y/o female, , at 35.6 wks dated by LMP confirmed by 12.6 wk sono, presents today from clinic for an iron infusion to treat anemia in . 1. Anemia affecting -Ordered CBC -Iron Transfusion given today 2. Third Trimester -NST done today -FHT's 140's, moderate variability and reactive. -BPP 8/8 (11/04) 3. Pregestational DM, White Class B -Starting Metformin today from Dr. Killian [facility] appointment. -Previously diet controlled -A1C of 6.0 (11/04) This H&P was discussed with Dr. Dorado and Dr. Nunez who agree with the above documentation and plan. Addendum - Attending - Attending Attestation Date/Time: 11/04/18 5129 I personally evaluated the patient and discussed the management with Dr. Arellano I agree with the History, Examination, Assessment and Plan documented above with any addition or exceptions noted below - 28 yo @ 35.6 weeks sent to L&D for iron infusion due to anemia of . (+) FM. Afebrile VSS. A/P: 1) IUP@35.6 weeks - iron infusion per protocol. Category 1 FHTs. D/c home after iron infusion.
== END 2018-11-04 17:09 | disposition home health service (06) ==
LOC: L&D/OP 10:36
PROVIDERS: ATTEND Family Medicine
DX: O99.013 Anemia complicating pregnancy, third trimester (principal); D64.9 Anemia, unspecified; O24.313 Unspecified pre-existing diabetes mellitus in pregnancy, third trimester; O99.213 Obesity complicating pregnancy, third trimester; E66.9 Obesity, unspecified; Z3A.35 35 weeks gestation of pregnancy; Z79.82 Long term (current) use of aspirin; Z79.899 Other long term (current) drug therapy
CPT/HCPCS: 36415; 59025; 76819; 80053; 83036; 96361; 96365; 96366; 99282; J1756; J7050

== ENCOUNTER 2018-11-15 13:24 | Inpatient (IN) | payer OTHER, SELFPAY ==
[~2018-11-15 13:24] MED LIST: Bupivacaine 0.25% HCL 30 ML VIAL ONE; Sodium Chloride 0.9% (PF) 10 ML VIAL ONE
[2018-11-15 13:58] VITALS: BMI 35.5
[2018-11-15] MEDS ORDERED: Fentanyl 4 mcg/Bup 0.1% Cadd 100 ML ONE (13:58)
[2018-11-15] MEDS ORDERED: Ibuprofen 800 MG TAB PO PRN (14:02)
[2018-11-15] MEDS ORDERED: Ondansetron PF 4 MG/2 ML Vial IVP PRN ×3 (14:02→22:30)
[2018-11-15] MEDS ORDERED: Diphenoxylate HCl/Atropine Tablet PO PRN ×2 (14:02)
[2018-11-15] MEDS ORDERED: Misoprostol 200 MCG TAB PR PRN (14:02)
[2018-11-15] MEDS ORDERED: hydrALAZINE 20 MG/ML VIAL SLOW IVP PRN ×2 (14:02→22:30)
[2018-11-15] MEDS ORDERED: Carboprost 250 MCG/ML AMP IM PRN (14:02)
[2018-11-15] MEDS ORDERED: Promethazine HCl 25 MG/ML VIAL IM PRN ×2 (14:02→17:49)
[2018-11-15] MEDS ORDERED: Lidocaine 1% (PF) 30 ML VIAL SC PRN (14:02)
[2018-11-15] MEDS ORDERED: Methylergonovine 0.2 MG/ML VIAL IM PRN (14:02)
[2018-11-15] MEDS: Lactated Ringer's 1,000 ML IV SCH ×2 (14:14→15:20)
[2018-11-15] MEDS ORDERED: NS w/ Oxytocin 10 units 500 ML IV SCH (14:15)
[2018-11-15 14:27] LABS: Hemoglobin 10.3 g/dL (12.0-16.0); Mean Corpuscular HGB CONC 33.4 g/dL (32.0-36.0); Mean Corpuscular Hemoglobin 23.6 pg (27.0-31.0); Mean Corpuscular Volume 70.6 fL (78.0-98.0); Mean Platelet Volume 9.2 fL (7.4-10.4); Platelet Count 305 thou/uL (130-400); RBC Distribution Width 19.3 % (11.5-14.5); Red Blood Cell (RBC) Count 4.37 mill/uL (4.20-5.40); White Blood Cell (WBC) Count 10.3 thou/uL (4.8-10.8)
[2018-11-15 15:03] LABS: HBSAg Index 0.32 S/CO (0-0.99); Hep B Surf Ag Non-Reactive S/CO (NonReactive); Syphilis Antibody Nonreactive (Nonreactive); Syphilis Antibody Index 0.04 S/CO (<1.00 Non-Reactive)
--- NOTE | 2018-11-15 15:06 | PDOC.FPROB ---
FMR OB H&P: HPI - History of Present Illness Chief Complaint: Contractions History of Present Illness: 28 yo at 37.3 presenting with contractions starting at 8am and worsening at 11am. No LOF, bleeding. +FM complicated by Class B DM on metformin BID, iron deficiency anemia requiring 2 iron transfusions, h/o nephrolithiasis Fetus has a suspected ASD and LVH Primary Care Physician: Alana FMR OB H&P: Current - Care : 3 Para: 2001 Gestational age: 37w2d Due date: 12/02/18 Dating Criteria: LMP/7w3d US Course/Complications: Class B DM Iron deficiency anemia Chronic thrombocytosis ASD/LVH - OB Labs Blood type: A RH: positive Antibody Screen: negative HIV: negative RPR: negative HepBsAg: negative Rubella: immune Gonorrhea: negative Chlamydia: negative 3 hour GTT: 95/206/185/119 A1c: 6.4 GBS: negative Additional labs: Low risk cell free DNA FMR OB H&P: History - Past Medical History PMH: Type 2 diabetes Thrombocytosis h/o nephrolithiasis Anemia - OB History OB History: : at term, 7lb G2: at term 6lb2oz - Surgical History Sx History: Neg - Social History Social History: Denies tobacco, ETOH or drugs - Family History Family History: DM, HTN, Osteogenesis imperfecta, tetralogy of fallot, pulmonary atresia, esophageal atresia FMR OB H&P: Medications - Current Home Medications: Medication Instructions Recorded Confirmed Type No122/Iron/Folic Acid 1 each PO DAILY #30 tablet 04/04/17 11/04/18 Rx [ Multi Tablet] Aspirin [Ecotrin Low Strength] 81 mg PO DAILY 09/06/18 11/04/18 History Ferrous Sulfate [Iron] 325 mg PO DAILY 09/06/18 11/04/18 History metFORMIN [Glucophage] 500 mg PO BID 11/15/18 11/15/18 History Allergies/Adverse Reactions: Allergies Allergy/AdvReac Type Severity Reaction Status Date / Time No Known Allergies Allergy Verified 11/04/18 11:16 FMR OB H&P: ROS - Review of Systems General: denies: fever/chills, weight/appetite/sleep changes Eyes: denies: vision changes ENT: denies: nasal congestion, rhinorrhea, sore throat Cardiovascular: denies: chest pain, palpitation Respiratory: denies: cough, congestion Gastrointestinal: reports: constipation. denies: abdominal pain Genitourinary (Female): reports: dysuria, contractions, vaginal pressure Neurologic: denies: numbness, weakness, loss of counsciousness, headache Integumentary: denies: rash Hematologic/Lymphatic: denies: prolonged or excessive bleeding Psychological: denies: depression, anxiety FMR OB H&P: Vital Signs - Maternal Vital signs: Vital Signs - First Documented Temp Pulse Resp BP Pulse Ox 99 F 78 20 149/93 H 99 11/15/18 13:55 11/15/18 13:55 11/15/18 13:55 11/15/18 13:55 11/15/18 13:55 - Heart Tones Baseline: 135 Variability: moderate Acceleration: present Deceleration: absent Category: category 1 [place] contractions every: 2-3 FMR OB H&P: Physical Exam - Physical Exam General: NAD, awake, alert and oriented HEENT: normocephalic and atraumatic, MMM Neck: supple Heart: RRR General: CTAB, no respiratory distress Abdomen: soft, gravid, non-tender Musculoskeletal: normal gait and station Skin: no rash Lymphatic: no unusual bruising or bleeding Psychiatric: intact recent and remote memory, good judgement and insight, normal mood and affect - Pelvic Exam Vulva: normal hair distribution Cervix: no masses SVE: 7cm Membranes: intact Presentation: cephalic Estimated Weight: 7 lbs FMR OB H&P: Results - Labs Lab results: Laboratory Results - last 24 hr 11/15/18 11/15/18 11/15/18 14:13 14:13 14:44 WBC 10.3 RBC 4.37 Hgb 10.3 L Hct 30.9 L MCV 70.6 L MCH 23.6 L MCHC 33.4 RDW 19.3 H Plt Count 305 MPV 9.2 POC Glucose 88 Blood Type A POSITIVE Antibody Screen NEGATIVE FMR OB H&P: A/P - Problem List (1) Term Current Visit: No Status: Acute Code(s): Z34.80 - ENCOUNTER FOR SUPRVSN OF NORMAL , UNSP TRIMESTER Comment: 27 yo @ 38w3d by 11w4d US presents with contractions delivered at 1736 on 04/03/17 s/p 2nd degree lac repair. - pain controlled with Ibprofen - well - plan for d/c today - f/u 2 weeks at [facility]. discussed control options but will be limited due to insurance. (2) Modified White class B pregestational diabetes mellitus Current Visit: No Status: Acute Code(s): O24.319 - UNSP PRE-EXISTING DIABETES IN , UNSP TRIMESTER (3) Iron deficiency anemia Current Visit: Yes Status: Acute Code(s): D50.9 - IRON DEFICIENCY ANEMIA, UNSPECIFIED Disposition: 1. Active labor at term -Expectant management -GBS negative -Cat I FHT -Anticipate 2. White class B DM -controlled on metformin 500mg BID -well diet controlled until 36w gestation -Monitor glucose q4hr during labor 3. Iron deficiency anemia -s/p 2 iron transfusions -Improved at 10.2 4. Suspected ASD/LVH in fetus -Will need echocardiogram after Discussion: Date/Time: 11/15/18 4513 This H&P was discussed with [] and [] who agree with the above documentation and plan.
[2018-11-15] MEDS: NS / Oxytocin 40 units/1000ml 1,000 ML IV PRN ×2 (16:33→19:03)
[2018-11-15] MEDS ORDERED: diphenhydrAMINE 50 MG/ML VIAL IVP PRN (17:49)
[2018-11-15] MEDS ORDERED: Lactated Ringer's 500 ML IV PRN (17:49)
[2018-11-15] MEDS ORDERED: Acetaminophen 325 MG TAB PO PRN (17:49)
[2018-11-15] MEDS ORDERED: Naloxone HCl 0.4 mg/ml Vial IVP PRN ×2 (17:49)
[2018-11-15] MEDS ORDERED: ePHEDrine/0.9% NaCl/PF SYRINGE 50 mg/10 ml SLOW IVP PRN (17:49)
[2018-11-15] MEDS ORDERED: Communication Order-Pharmacy FS SCH (18:00)
[2018-11-15] MEDS ORDERED: Fentanyl 4 mcg/Bupivacaine 0.1% Cassette 100 ML EPIDURAL SCH (18:00)
--- NOTE | 2018-11-15 18:48 | PDOC.OPDEL ---
OB Operative/Delivery Note Delivery Dr/Surgeon: Dr. Warner Assist: Dr. Loya Pre-Delivery Diagnosis: active labor Procedure/Post Delivery Dx: spontaneous vaginal delivery Weeks gestation: 37 (.3) Anesthesia: epidural - Additional Findings/Plan Placenta delivered: manual removal Repaired Obstetrical Laceration: none Estimated blood loss: 132ml Compilations/Other Findings: Vaginal Delivery Delivering Physician: Dr. Brett Loya Attending: Dr. Nayla Warner Procedure: Spontaneous Vaginal Delivery Anesthesia: Epidural EBL: 132 ml Pre-op Diagnosis: 1. Term intrauterine in labor 2. Hx of macrosomia, hx of preeclampsia, hx of infections Post-op Diagnosis: 1. Term intrauterine , delivered 2. same as above Indications: A 28y/o female presents in active labor Delivery Note: This is 28yo F 0 0 2 @ 37.3wks who delivered a viable F infant at 1626. Following an uneventful antepartum course, a vigorous female was delivered over an intact perineum in the occipitoanterior position. Anterior Shoulder and then remainder of the body delivered. Loose nuchal cord x1. The head was held down and mouth and nares were bulb suctioned. Cord clamped after delayed cord clamping and cut and cord blood collected. Placenta delivered intact with a 3 vessel cord noted. Fundal massage was performed and the fundus was firm. The cervix and vagina were inspected and a small hemostatic 1st degree perineal laceration that did not require closure was noted. Infant went to nursery in good condition for routine care. Apgars were 8/9 at 1 & 5 minutes, respectively. Patient tolerated delivery well and went to after routine recovery/care. Post delivery plan: routine recovery Addendum - Attending - Attending Attestation Date/Time: 11/18/18 1317 I was present for and assisted in the entire uncomplicated performed by Dr. Loya. I agree with documented findings as above.
[2018-11-15] MEDS ORDERED: Bisacodyl 10 MG SUPP PR PRN (22:30)
[2018-11-15] MEDS ORDERED: Adacel (T-DAP) 0.5 ML SYRINGE IM ONE (22:30)
[2018-11-15] MEDS ORDERED: Benzocaine-Menthol 82.5 ML CAN TOP PRN (22:30)
[2018-11-15] MEDS ORDERED: Milk Of Magnesia 30 ML UDCUP PO PRN (22:30)
[2018-11-15] MEDS ORDERED: NS / Oxytocin 40 units/1000ml 1,000 ML IV SCH (22:30)
[2018-11-15] MEDS ORDERED: Lanolin Ointment 7 GM TUBE TOP PRN (22:30)
[2018-11-15] MEDS: Ibuprofen 800 MG TAB PO SCH (23:59)
[2018-11-15] MEDS: Docusate Calcium (SURFAK) 240 MG CAP PO SCH (23:59)
--- NOTE | 2018-11-16 06:38 | PDOC.PP ---
Post Progress Note Post Day #: 1 Subjective: Pt states she is having vaginal bleeding equal to that of a period. Denies any pain, SOB, chest pain, abdominal pain, LE swelling or headache. PO intake tolerated: yes Flatus: yes Ambulation: yes Vital Signs (12 hours) Temp Pulse Resp BP Pulse Ox 11/16/18 03:50 98.0 F 71 18 121/68 11/16/18 00:00 98.3 F 77 18 149/73 H 98 11/15/18 20:40 98.0 F 75 18 137/78 98 Weight Weight 99.79 kg - Physical Examination General: NAD Cardiovascular: no m/r/g, RRR Respiratory: clear to auscultation bilaterally, non-labored breathing Abdominal: + bowel sounds, lochia, no distention, appropriately TTP Fundus firm & at: firm at umbilicus Extremities: negative homans (B) Skin: no rash Neurological: no gross focal deficits Psychiatric: A&Ox3, normal affect Result Diagrams: 11/15/18 14:13 Additional Labs: Post Labs Blood Type A POSITIVE 11/15/18 14:13 Hep Bs Antigen Non-Reactive S/CO (NonReactive) 11/15/18 14:13 (1) Term Code(s): Z34.80 - ENCOUNTER FOR SUPRVSN OF NORMAL , UNSP TRIMESTER Status: Acute Comment: 27 yo @ 38w3d by 11w4d US presents with contractions delivered at 1736 on 04/03/17 s/p 2nd degree lac repair. - pain controlled with Ibprofen - well - plan for d/c today - f/u 2 weeks at [facility]. discussed control options but will be limited due to insurance. (2) Iron deficiency anemia Code(s): D50.9 - IRON DEFICIENCY ANEMIA, UNSPECIFIED Status: Acute (3) Anemia affecting Code(s): O99.019 - ANEMIA COMPLICATING , UNSPECIFIED TRIMESTER Status : Acute Qualifiers: Trimester: third trimester Qualified Code(s): O99.013 - Anemia complicating , third trimester Comment: H&H at baseline. received iron infusion approx 1 week prior to delivery. (4) Modified White class B pregestational diabetes mellitus Code(s): O24.319 - UNSP PRE-EXISTING DIABETES IN , UNSP TRIMESTER Status: Acute - Assessment/Plan 28 y/o , now 3003, PP day #1. Delivery via on 11/15 @1626. 1. Routine Post care PP day #1 -continue current pain management - @ 1626 on 11/15 2. White class B DM -controlled on metformin 500mg BID -well diet controlled until 36w gestation -Monitor glucose 3. Iron deficiency anemia -s/p 2 iron transfusions -Improved at 10.2 dispo: continue routine PP care. Pt stable. Addendum - Attending - Attending Attestation Date/Time: 11/18/18 1321 I personally evaluated the patient and discussed the management with Dr. Arellano I agree with the History, Examination, Assessment and Plan documented above with any addition or exceptions noted below. Stable PPD #2 s/p uncomplicated . Meeting appropriate milestones. Pt requesting d/c to home today. Will allow if baby is also able to d/c today.
[2018-11-16] MEDS: Ferrous Sulfate 325 MG TAB PO SCH ×2 (07:32→08:32)
[2018-11-16] MEDS: Lactated Ringer's 1,000 ML IV SCH (07:33)
[2018-11-16] MEDS: Ibuprofen 800 MG TAB PO SCH ×2 (08:32→17:05)
[2018-11-16] MEDS: Docusate Calcium (SURFAK) 240 MG CAP PO SCH (08:32)
[2018-11-16] MEDS ORDERED: Prenatal Vitamin 1 TAB PO SCH (09:00)
[2018-11-16 17:00] VITALS: BP 118/68; TEMP 98.5
== END 2018-11-16 17:53 | disposition home or self-care (01) | DRG 807 ==
LOC: L&D/OP 13:24 → L&D 14:13 → 3SW 20:47
PROVIDERS: ADMIT Obstetrics & Gynecology; ATTEND Obstetrics & Gynecology
PROC: 10907ZC Drainage of Amniotic Fluid, Therapeutic from Products of Conception, Via Natural or Artificial Opening (ICD-10-PCS; principal; 2018-11-15)
PROC: 10E0XZZ Delivery of Products of Conception, External Approach (ICD-10-PCS; 2018-11-15)
DX: O24.12 Pre-existing type 2 diabetes mellitus, in childbirth (principal); Z37.0 Single live birth; O99.02 Anemia complicating childbirth; D50.9 Iron deficiency anemia, unspecified; O69.81X0 Labor and delivery complicated by cord around neck, without compression, not applicable or unspecified; O70.0 First degree perineal laceration during delivery; Z3A.37 37 weeks gestation of pregnancy; Z79.84 Long term (current) use of oral hypoglycemic drugs
CPT/HCPCS: 36415; 36416; 51702; 85027; 86780; 86850; 86900; 86901; 87340; 99285; J2001; S0020

== ENCOUNTER 2020-05-30 07:20 | Emergency (ER) | payer MEDICAID, SELFPAY ==
[2020-05-30] MEDS ORDERED: Ondansetron PF 4 MG/2 ML Vial ONE (07:38)
[2020-05-30] MEDS ORDERED: Ketorolac Tromethamine 30 MG/ML VIAL ONE (07:38)
[2020-05-30 08:08] LABS: BHCG - Serum Negative (NEGATIVE); Bilirubin Negative (Negative); Blood, Urine Trace (Negative); Clarity Clear (Clear); Glucose, Urine (Dipstick) Normal (Negative); Ketone, Urine Negative (Negative); Leukocyte Negative Leu/uL (Negative); Nitrite Negative (Negative); Pregs Control Background? CLEAR/WHITE (CLR/WHITE); Pregs Control Bar Appear? YES (CONTROL BAR); Protein, Urine (Dipstick) Negative (Neg-Trace); RBC/HPF 0-3 HPF (0-3); Specific Gravity, Urine 1.004 (1.002-1.036); Squamous Epithelial 0-3 HPF (0-3); Urobilinogen Normal mg/dL (Less than 2); WBC/HPF 0-3 HPF (0-3); pH, Urine 5.5 (5.0-9.0)
[2020-05-30 08:12] LABS: #Basophils 0.1 thou/uL (0.0-0.2); #Eosinphils 0.3 thou/uL (0.0-0.7); #Lymphocytes 4.9 thou/uL (1.20-3.40); #Monocytes 0.4 thou/uL (0.11-0.59); %Basophils 0.8 % (0.0-1.0); %Eosinophils 2.5 % (0.0-10.0); %Lymphocytes 41.9 % (21.0-51.0); %Monocytes 3.6 % (0.0-10.0); %Neutrophils 51.1 % (42.0-75.0); Hemoglobin 10.4 g/dL (12.0-16.0); Mean Corpuscular HGB CONC 32.6 g/dL (32.0-36.0); Mean Corpuscular Hemoglobin 23.7 pg (27.0-31.0); Mean Corpuscular Volume 72.9 fL (78.0-98.0); Mean Platelet Volume 7.3 fL (7.4-10.4); Platelet Count 447 thou/uL (130-400); RBC Distribution Width 13.8 % (11.5-14.5); Red Blood Cell (RBC) Count 4.38 mill/uL (4.20-5.40); White Blood Cell (WBC) Count 11.6 thou/uL (4.8-10.8)
[2020-05-30 08:18] LABS: Bacteria/HPF 1+ HPF (None Seen)
[2020-05-30 08:21] LABS: ALT (SGPT) 8 U/L (8-55); AST (SGOT) 12 U/L (5-34); Albumin 3.8 g/dL (3.5-5.0); Alkaline Phosphatase 64 U/L (40-110); Anion Gap 14 mmol/L (10-20); BUN (Urea Nitrogen) 13 mg/dL (7.0-18.7); Bilirubin, Total 0.2 mg/dL (0.2-1.2); Calc. Creatinine Clearance 0 mL/min (70-130); Carbon Dioxide 20 mmol/L (22-29); Chloride 106 mmol/L (98-107); Globulin 4.2 g/dL (2.4-3.5); Glucose 147 mg/dL (70-105); Lipase 51 U/L (8-78); Potassium 3.9 mmol/L (3.5-5.1); Sodium 136 mmol/L (136-145)
--- NOTE | 2020-05-30 08:39 | ULT ---
US Gallbladder RUQ History: Right upper quadrant pain Comparison: None. Findings: Real-time grayscale and color evaluation right upper quadrant of the abdomen was performed. Visualized portion of the aorta, IVC and pancreas are unremarkable. Diffuse increased hepatic echotex ture with hepatomegaly. Liver measures 18.9 cm in length. No hepatic mass. Portal vein is patent with antegrade flow. Common bile duct upper limits of normal at 6 mm. The gallbladder is distended. There is a stone within the gallbladder neck. No pericholecystic inflam mation. Wall thickness is normal. Sonographic Lundberg sign is negative. Right kidney measures 12 x 4.7 x 4.8 cm without mass, hydronephrosis or abnormal calcifications. Impression: 1. Hepatomegaly with diffuse hepatic steatosis. 2. Distended gallbladder with stone at the neck may reflect symptomatic cholelithiasis. No sonographi c evidence of cholecystitis yet appreciated.
[2020-05-30 08:56] LABS: Hypochromia SLIGHT = 6-15 cells (100X) (0-5/hpf); MDiff Complete? YES; Microcytosis SLIGHT = 6-15 cells (100X) (0-5/hpf); Platelet Morphology Comment Appears Increased; Polychromasia SLIGHT = 2-3 cells (100X) (0-2/hpf)
== END 2020-05-30 09:15 | disposition home or self-care (01) ==
LOC: ERS 07:20
DX: K80.50 Calculus of bile duct without cholangitis or cholecystitis without obstruction (principal)
CPT/HCPCS: 76705; 80053; 81003; 81015; 83690; 84703; 85025; 94760; 96374; 96375; J1885; J2405

== ENCOUNTER 2020-08-12 08:51 | Outpatient (CLI) | payer SELFPAY ==
[2020-08-12 16:35] LABS: #Eosinphils 0.2 10x3/uL (0.0-0.5); #Monocytes 0.5 10x3/uL (0.0-1.1); #Neutrophils 5.9 10x3/uL (1.5-8.4); %Basophils 0.4 % (0.0-2.0); %Eosinophils 2.1 % (0.0-6.0); %Lymphocytes 37.8 % (18.0-47.0); %Monocytes 4.3 % (0.0-10.0); %Neutrophils 54.9 % (40.0-75.0); Hemoglobin 10.5 g/dL (12.0-15.5); Mean Corpuscular HGB CONC 29.4 g/dL (32.0-36.0); Mean Corpuscular Hemoglobin 21.5 pg (27.0-33.0); Mean Corpuscular Volume 73.2 fl (81.6-98.3); Mean Platelet Volume 10.4 fl (7.4-10.4); Platelet Count 435 10x3/uL (150-450); RBC Distribution Width 18.4 % (11.5-14.5); Red Blood Cell (RBC) Count 4.88 10x6/uL (3.90-5.03); White Blood Cell (WBC) Count 10.8 10x3/uL (3.5-10.5)
[2020-08-12 16:39] LABS: BHCG - Serum Negative (NEGATIVE); Pregs Control Background? CLEAR/WHITE (CLR/WHITE); Pregs Control Bar Appear? YES (CONTROL BAR)
[2020-08-12 16:44] LABS: ALT (SGPT) 25 U/L (8-55); AST (SGOT) 25 U/L (5-34); Albumin 4.2 g/dL (3.5-5.0); Alkaline Phosphatase 59 U/L (40-110); Anion Gap 17 mmol/L (10-20); BUN (Urea Nitrogen) 8 mg/dL (7.0-18.7); Bilirubin, Total 0.4 mg/dL (0.2-1.2); Calc. Creatinine Clearance 0 mL/min (70-130); Calcium 9.1 mg/dL (7.8-10.44); Carbon Dioxide 20 mmol/L (22-29); Chloride 106 mmol/L (98-107); Globulin 3.5 g/dL (2.4-3.5); Glucose 146 mg/dL (70-105); Potassium 4.2 mmol/L (3.5-5.1); Protein, Total 7.7 g/dL (6.0-8.3); Sodium 139 mmol/L (136-145)
[2020-08-12 17:27] LABS: Anisocytosis SLIGHT = 6-15 cells (100X) (0-5/hpf); Hypochromia SLIGHT = 6-15 cells (100X) (0-5/hpf); Microcytosis SLIGHT = 6-15 cells (100X) (0-5/hpf); Polychromasia SLIGHT = 2-3 cells (100X) (0-2/hpf)
[2020-08-12 17:28] LABS: Large Platelets SLIGHT; Platelet Morphology Comment Appears Adequate; Stomatocytes MODERATE= 6-15 cells (100X) (0-1/hpf)
[2020-08-13 01:52] LABS: SARS-CoV-2 PCR by NAA Not Detected (NotDetected)
== END 2020-08-12 08:52 | disposition home or self-care (01) ==
LOC: LABBT 08:51
PROVIDERS: ATTEND Surgery
DX: Z01.812 Encounter for preprocedural laboratory examination (principal); K80.20 Calculus of gallbladder without cholecystitis without obstruction; Z20.822 Contact with and (suspected) exposure to COVID-19
CPT/HCPCS: 80053; 84703; 85025; 87635; U0003; U0005

== ENCOUNTER 2020-08-17 09:03 | Day surgery (SDC) | payer OTHER ==
[2020-08-16 11:34] VITALS: BMI 34.6
[2020-08-17] MEDS ORDERED: Ketorolac Tromethamine 30 MG/ML VIAL ONE (09:35)
[2020-08-17] MEDS ORDERED: Acetaminophen 500 MG TAB ONE (09:35)
[2020-08-17] MEDS ORDERED: Bupivacaine 0.25% HCL 30 ML VIAL ONE ×2 (12:52→14:09)
[2020-08-17] MEDS ORDERED: Lidocaine 1% w/Epinephrine 1:100K 20 ML VIAL ONE ×2 (12:52→14:09)
[2020-08-17] MEDS ORDERED: Fentanyl 100 MCG/2 ML VIAL ONE (12:57)
[2020-08-17] MEDS ORDERED: Midazolam HCl 2 mg/2 ml Vial ONE (12:57)
[2020-08-17] MEDS ORDERED: Rocuronium Bromide 10 MG/ML (10ML VIAL) ONE (13:11)
[2020-08-17] MEDS ORDERED: Ondansetron PF 4 MG/2 ML Vial ONE (13:11)
[2020-08-17] MEDS ORDERED: Dexamethasone 20 MG/5 ML VIAL ONE (13:11)
[2020-08-17] MEDS ORDERED: Lidocaine 1% PF 5 ML VIAL ONE (13:11)
[2020-08-17] MEDS ORDERED: PROPOFOL 200 MG/20 ML VIAL ONE (13:11)
[2020-08-17] MEDS ORDERED: Morphine 4 MG/ML VIAL ONE (14:38)
[2020-08-17] MEDS ORDERED: HYDROcodone/Acetaminophen 5/325 mg Tablet ONE (16:31)
[2020-08-17] MEDS ORDERED: Ondansetron ODT 4 MG TAB ONE (16:48)
== END 2020-08-17 17:12 | disposition home or self-care (01) ==
LOC: SDC 09:03
PROVIDERS: ATTEND Surgery
PROC: 0FT44ZZ Resection of Gallbladder, Percutaneous Endoscopic Approach (ICD-10-PCS; principal; 2020-08-17)
DX: K80.10 Calculus of gallbladder with chronic cholecystitis without obstruction (principal); D64.9 Anemia, unspecified; E78.00 Pure hypercholesterolemia, unspecified; E11.9 Type 2 diabetes mellitus without complications; I10 Essential (primary) hypertension; Z79.84 Long term (current) use of oral hypoglycemic drugs; Z87.891 Personal history of nicotine dependence
CPT/HCPCS: 88304; J0690; J1100; J1885; J2250; J2270; J2405; J2704; J3010; Q0162; S0020

== ENCOUNTER 2020-08-20 18:02 | Emergency (ER) | payer SELFPAY ==
[~2020-08-20 18:02] MED LIST changes: -Bupivacaine 0.25% HCL 30 ML VIAL ONE; +Iopamidol-370 76% 500 ML 1 ML ONE; -Sodium Chloride 0.9% (PF) 10 ML VIAL ONE
[2020-08-20 18:40] LABS: #Basophils 0.1 thou/uL (0.0-0.2); #Eosinphils 0.2 thou/uL (0.0-0.7); #Lymphocytes 4.5 thou/uL (1.20-3.40); #Monocytes 0.6 thou/uL (0.11-0.59); #Neutrophils 8.4 thou/uL (1.40-6.50); %Basophils 0.4 % (0.0-1.0); %Eosinophils 1.2 % (0.0-10.0); %Lymphocytes 32.7 % (21.0-51.0); %Monocytes 4.4 % (0.0-10.0); %Neutrophils 61.2 % (42.0-75.0); Hemoglobin 9.5 g/dL (12.0-16.0); Mean Corpuscular HGB CONC 32.4 g/dL (32.0-36.0); Mean Corpuscular Hemoglobin 23.5 pg (27.0-31.0); Mean Corpuscular Volume 72.7 fL (78.0-98.0); Mean Platelet Volume 7.9 fL (7.4-10.4); Platelet Count 385 thou/uL (130-400); RBC Distribution Width 17.6 % (11.5-14.5); Red Blood Cell (RBC) Count 4.02 mill/uL (4.20-5.40); White Blood Cell (WBC) Count 13.7 thou/uL (4.8-10.8)
[2020-08-20] MEDS ORDERED: Ondansetron ODT 4 MG TAB ONE (18:52)
[2020-08-20 19:00] LABS: ALT (SGPT) 28 U/L (8-55); AST (SGOT) 24 U/L (5-34); Albumin 3.7 g/dL (3.5-5.0); Alkaline Phosphatase 57 U/L (40-110); Anion Gap 14 mmol/L (10-20); BUN (Urea Nitrogen) 6 mg/dL (7.0-18.7); Bilirubin, Total 0.2 mg/dL (0.2-1.2); Calc. Creatinine Clearance 0 mL/min (70-130); Calcium 8.8 mg/dL (7.8-10.44); Carbon Dioxide 24 mmol/L (22-29); Chloride 103 mmol/L (98-107); Globulin 3.4 g/dL (2.4-3.5); Glucose 145 mg/dL (70-105); Potassium 3.9 mmol/L (3.5-5.1); Protein, Total 7.1 g/dL (6.0-8.3); Sodium 137 mmol/L (136-145)
== END 2020-08-20 21:12 | disposition home or self-care (01) ==
LOC: ERS 18:02
DX: N92.0 Excessive and frequent menstruation with regular cycle (principal); N93.8 Other specified abnormal uterine and vaginal bleeding; E11.9 Type 2 diabetes mellitus without complications; Z79.84 Long term (current) use of oral hypoglycemic drugs
CPT/HCPCS: 36415; 74177; 80053; 84702; 85025; 86900; 86901; Q0162; Q9967

== ENCOUNTER 2021-12-11 15:53 | Emergency (ER) | payer BC ==
[2021-12-11 17:11] LABS: #Eosinphils 0.2 thou/uL (0.0-0.7); #Lymphocytes 4.7 thou/uL (1.20-3.40); #Monocytes 0.5 thou/uL (0.11-0.59); #Neutrophils 6.3 thou/uL (1.40-6.50); %Basophils 0.4 % (0.0-1.0); %Eosinophils 1.9 % (0.0-10.0); %Lymphocytes 40.2 % (21.0-51.0); %Monocytes 4.2 % (0.0-10.0); %Neutrophils 53.3 % (42.0-75.0); Hemoglobin 11.2 g/dL (12.0-16.0); Mean Corpuscular HGB CONC 33.6 g/dL (32.0-36.0); Mean Corpuscular Hemoglobin 26.3 pg (27.0-31.0); Mean Corpuscular Volume 78.2 fL (78.0-98.0); Mean Platelet Volume 8.3 fL (7.4-10.4); Platelet Count 359 thou/uL (130-400); RBC Distribution Width 13.9 % (11.5-14.5); Red Blood Cell (RBC) Count 4.24 mill/uL (4.20-5.40); White Blood Cell (WBC) Count 11.8 thou/uL (4.8-10.8)
[2021-12-11 17:35] LABS: ALT (SGPT) 14 U/L (8-55); AST (SGOT) 13 U/L (5-34); Albumin 4.1 g/dL (3.5-5.0); Alkaline Phosphatase 56 U/L (40-110); Anion Gap 14 mmol/L (10-20); BUN (Urea Nitrogen) 13 mg/dL (7.0-18.7); Bilirubin, Total 0.2 mg/dL (0.2-1.2); Calc. Creatinine Clearance 0 mL/min (70-130); Calcium 9.3 mg/dL (7.8-10.44); Carbon Dioxide 20 mmol/L (22-29); Chloride 107 mmol/L (98-107); Estimated GFR 116; Globulin 3.9 g/dL (2.4-3.5); Glucose 167 mg/dL (70-105); Lipase 54 U/L (8-78); Potassium 3.8 mmol/L (3.5-5.1); Sodium 137 mmol/L (136-145)
[2021-12-11] MEDS ORDERED: Ketorolac Tromethamine 30 MG/ML VIAL ONE (19:28)
[2021-12-11] MEDS ORDERED: Ondansetron PF 4 MG/2 ML Vial ONE (19:28)
[2021-12-11] MEDS ORDERED: Morphine 4 MG/ML VIAL ONE (19:28)
[2021-12-11 22:12] LABS: Bilirubin Negative (Negative); Blood, Urine Trace (Negative); Clarity Clear (Clear); Glucose, Urine (Dipstick) Normal (Negative); Ketone, Urine Negative (Negative); Leukocyte Negative Leu/uL (Negative); Mucous/LPF Rare LPF (<2+); Nitrite Negative (Negative); Protein, Urine (Dipstick) 10 mg/dL (Neg-Trace); Specific Gravity, Urine 1.029 (1.002-1.036); Squamous Epithelial 0-3 HPF (0-3); Urobilinogen Normal mg/dL (Less than 2); WBC/HPF 0-3 HPF (0-3); pH, Urine 5.5 (5.0-9.0)
[2021-12-11 22:14] LABS: Pregnancy Test - Urine (BHCG) Negative (Negative); Pregu Control Background? CLEAR/WHITE (CLR/WHITE); Pregu Control Bar Appear? YES (CONTROL BAR); Specific Gravity 1.029 (1.002-1.036)
[2021-12-11 22:21] LABS: Bacteria/HPF 2+ HPF (None Seen)
== END 2021-12-11 23:24 | disposition home or self-care (01) ==
LOC: ERS 15:53
DX: R10.12 Left upper quadrant pain (principal); R10.32 Left lower quadrant pain; E11.9 Type 2 diabetes mellitus without complications
CPT/HCPCS: 36415; 74177; 80053; 81003; 81015; 81025; 83690; 85025; 96374; 96375; J1885; J2270; J2405; Q9967

== ENCOUNTER 2022-11-22 19:50 | Emergency (ER) | payer BC ==
[~2022-11-22 19:50] MED LIST changes: -Iopamidol-370 76% 500 ML 1 ML ONE; +Iopamidol-370 76% 500 ML MDV (1 ML CHARGE) ONE
[2022-11-22 20:29] LABS: Bilirubin Negative (Negative); Blood, Urine 3+ (Negative); CAUTI Indications for Culture Dysuria,urgency,freq; Clarity Clear (Clear); Glucose, Urine (Dipstick) 70 mg/dL (Negative); Ketone, Urine Negative (Negative); Leukocyte Negative Leu/uL (Negative); Nitrite Negative (Negative); Protein, Urine (Dipstick) Negative (Neg-Trace); RBC/HPF 21-50 HPF (0-3); Specific Gravity, Urine 1.022 (1.002-1.036); Squamous Epithelial 0-3 HPF (0-3); Urobilinogen Normal mg/dL (Less than 2); WBC/HPF 0-3 HPF (0-3); pH, Urine 5.5 (5.0-9.0)
[2022-11-22 20:37] LABS: Bacteria/HPF Rare-Few HPF (None Seen)
[2022-11-22 20:39] LABS: Urine Culture Reflex No No
[2022-11-22 20:49] LABS: Hematocrit 34.4 % (36.0-47.0); Hemoglobin 10.9 g/dL (12.0-16.0); Mean Corpuscular HGB CONC 31.7 g/dL (32.0-36.0); Mean Corpuscular Hemoglobin 23.9 pg (27.0-31.0); Mean Corpuscular Volume 75.3 fl (78.0-98.0); Mean Platelet Volume 10.7 fL (7.4-10.4); Platelet Count 366 10x3/uL (130-400); RBC Distribution Width 15.1 % (11.5-14.5); Red Blood Cell (RBC) Count 4.57 mill/uL (4.20-5.40); White Blood Cell (WBC) Count 11.9 10x3/uL (4.8-10.8)
[2022-11-22 20:57] LABS: BHCG - Serum Negative (NEGATIVE); Pregs Control Background? CLEAR/WHITE (CLR/WHITE); Pregs Control Bar Appear? YES (CONTROL BAR)
[2022-11-22 21:02] LABS: Delete Auto Diff?? YES
[2022-11-22] MEDS ORDERED: Morphine 4 MG/ML VIAL ONE (21:04)
[2022-11-22 21:10] LABS: ALT (SGPT) 24 U/L (8-55); AST (SGOT) 28 U/L (5-34); Alkaline Phosphatase 63 U/L (40-110); Anion Gap 11 mmol/L (10-20); BUN (Urea Nitrogen) 11 mg/dL (7.0-18.7); Bilirubin, Total 0.2 mg/dL (0.2-1.2); Calc. Creatinine Clearance 0 mL/min (70-130); Calcium 8.6 mg/dL (7.8-10.44); Carbon Dioxide 22 mmol/L (22-29); Chloride 105 mmol/L (98-107); Estimated GFR 97; Globulin 3.7 g/dL (2.4-3.5); Glucose 213 mg/dL (70-105); Lipase 55 U/L (8-78); Potassium 3.6 mmol/L (3.5-5.1); Protein, Total 7.7 g/dL (6.0-8.3); Sodium 134 mmol/L (136-145)
[2022-11-22 21:23] LABS: CellaVision Operator ID LAB.CLH1; Platelet Adequacy Comment Platelets Normal
== END 2022-11-22 23:20 | disposition home or self-care (01) ==
LOC: ERS 19:50
DX: R10.32 Left lower quadrant pain (principal); E11.9 Type 2 diabetes mellitus without complications
CPT/HCPCS: 36415; 74177; 76856; 80053; 81001; 83605; 83690; 84703; 85025; 96361; 96374; J2270; Q9967

== ENCOUNTER 2023-02-19 16:13 | Observation (INO) | payer BC ==
[2023-02-19 18:24] LABS: Hematocrit 36.7 % (36.0-47.0); Hemoglobin 11.8 g/dL (12.0-16.0); Mean Corpuscular HGB CONC 32.2 g/dL (32.0-36.0); Mean Corpuscular Hemoglobin 24.2 pg (27.0-31.0); Mean Corpuscular Volume 75.2 fl (78.0-98.0); Mean Platelet Volume 10.4 fL (7.4-10.4); Platelet Count 360 10x3/uL (130-400); RBC Distribution Width 15.2 % (11.5-14.5); Red Blood Cell (RBC) Count 4.88 mill/uL (4.20-5.40); White Blood Cell (WBC) Count 9.5 10x3/uL (4.8-10.8)
[2023-02-19 18:29] LABS: BHCG - Serum Negative (NEGATIVE); Pregs Control Background? CLEAR/WHITE (CLR/WHITE); Pregs Control Bar Appear? YES (CONTROL BAR)
[2023-02-19 18:30] LABS: Delete Auto Diff?? YES; Manual Diff?? YES
[2023-02-19 18:45] LABS: ALT (SGPT) 26 U/L (8-55); AST (SGOT) 27 U/L (5-34); Albumin 4.4 g/dL (3.5-5.0); Alkaline Phosphatase 67 U/L (40-110); BUN (Urea Nitrogen) 7 mg/dL (7.0-18.7); Bilirubin, Total 0.4 mg/dL (0.2-1.2); Calc. Creatinine Clearance 0 mL/min (70-130); Calcium 9.3 mg/dL (7.8-10.44); Carbon Dioxide 24 mmol/L (22-29); Estimated GFR 121; Globulin 3.6 g/dL (2.4-3.5); Glucose 116 mg/dL (70-105); Magnesium 1.8 mg/dL (1.6-2.6)
[2023-02-19 18:48] LABS: Chloride 104 mmol/L (98-107); Potassium 3.5 mmol/L (3.5-5.1); Sodium 138 mmol/L (136-145)
[2023-02-19 18:49] LABS: Troponin I Less than 0.010 ng/mL (< 0.028)
[2023-02-19 18:53] LABS: Band 1 % (5-11); CellaVision Operator ID LAB.MJL; Eosinophils 5 % (0-10); Hypochromia SLIGHT = 6-15 cells HPF (0-5); Lymphocytes 42 % (21-51); Microcytosis SLIGHT = 6-15 cells HPF (0-5); Monocytes 3 % (0-10); Neutrophil 47 % (42-75); Platelet Adequacy Comment Platelets Normal; Polychromasia SLIGHT = 2-3 cells HPF (0-2); Reactive Lymphocytes 1 % (0-10); Total Cell Count 100
[2023-02-19 19:06] LABS: Anion Gap 16 mmol/L (10-20)
[2023-02-19] MEDS ORDERED: Acetaminophen 325 MG TAB PO PRN (20:54)
[2023-02-19] MEDS ORDERED: Ondansetron ODT 4 MG TAB PO PRN (20:54)
[2023-02-19] MEDS ORDERED: Atorvastatin Calcium 40 MG TAB PO SCH (21:00)
[2023-02-19] MEDS ORDERED: Aspirin Chewable 81 MG TAB ONE (21:16)
[2023-02-19] MEDS ORDERED: Atorvastatin Calcium 10 MG TAB ONE (21:16)
[2023-02-19] MEDS: Famotidine 20 MG TAB PO SCH (22:52)
[2023-02-19 23:03] VITALS: BMI 35.3
[2023-02-20 04:02] LABS: Hematocrit 33.8 % (36.0-47.0); Hemoglobin 10.7 g/dL (12.0-16.0); Mean Corpuscular HGB CONC 31.7 g/dL (32.0-36.0); Mean Corpuscular Hemoglobin 24.3 pg (27.0-31.0); Mean Corpuscular Volume 76.8 fl (78.0-98.0); Mean Platelet Volume 10.3 fL (7.4-10.4); Platelet Count 343 10x3/uL (130-400); RBC Distribution Width 15.3 % (11.5-14.5); White Blood Cell (WBC) Count 10.3 10x3/uL (4.8-10.8)
[2023-02-20 04:03] LABS: Manual Diff?? YES
[2023-02-20 04:04] LABS: Delete Auto Diff?? YES
[2023-02-20 04:31] LABS: Anisocytosis SLIGHT = 6-15 cells HPF (0-5); CellaVision Operator ID lab.sh2; Eosinophils 4 % (0-10); Hypochromia MODERATE=16-30 cells HPF (0-5); Lymphocytes 39 % (21-51); Monocytes 5 % (0-10); Neutrophil 52 % (42-75); Platelet Adequacy Comment Platelets Normal; Polychromasia SLIGHT = 2-3 cells HPF (0-2); Smudge Cells 39.4 %; Total Cell Count 99
[2023-02-20 04:49] LABS: ALT (SGPT) 26 U/L (8-55); AST (SGOT) 36 U/L (5-34); Albumin 3.7 g/dL (3.5-5.0); Alkaline Phosphatase 58 U/L (40-110); Anion Gap 16 mmol/L (10-20); BUN (Urea Nitrogen) 8 mg/dL (7.0-18.7); Bilirubin, Total 0.3 mg/dL (0.2-1.2); Calc. Creatinine Clearance 174 mL/min (70-130); Calcium 8.6 mg/dL (7.8-10.44); Carbon Dioxide 22 mmol/L (22-29); Cardiac Risk 4.8 (Less than 4.5); Chloride 105 mmol/L (98-107); Cholesterol 133 mg/dl (< 200 Desired); Estimated GFR 115; Globulin 3.6 g/dL (2.4-3.5); Glucose 168 mg/dL (70-105); HDL Cholesterol 28 mg/dL (>60 Neg Risk); Potassium 3.9 mmol/L (3.5-5.1); Protein, Total 7.3 g/dL (6.0-8.3); Sodium 139 mmol/L (136-145); Triglycerides 501 mg/dL (Less than 150)
[2023-02-20] MEDS ORDERED: Ferrous Sulfate 325 MG TAB PO SCH (08:00)
[2023-02-20] MEDS ORDERED: Aspirin Chewable 81 MG TAB PO SCH (09:00)
[2023-02-20] MEDS ORDERED: Lisinopril 2.5 MG TAB PO SCH (09:00)
[2023-02-20] MEDS ORDERED: Fenofibrate Nanocrystallized 145 MG TAB PO SCH (09:00)
[2023-02-20] MEDS ORDERED: Cholecalciferol 1,000 UNITS (25 MCG) TAB PO SCH (09:00)
[2023-02-20] MEDS: Famotidine 20 MG TAB PO SCH (09:44)
[2023-02-20 12:51] VITALS: BP 131/82; TEMP 98.7
[2023-02-20] MEDS ORDERED: metFORMIN 500 MG TAB PO SCH (21:00)
== END 2023-02-20 13:33 | disposition home or self-care (01) ==
LOC: ERS 16:13 → 2SW 20:31
PROVIDERS: ADMIT Student in an Organized Health Care Education/Training Program; ATTEND Emergency Medicine
DX: G45.9 Transient cerebral ischemic attack, unspecified (principal); E11.69 Type 2 diabetes mellitus with other specified complication; I10 Essential (primary) hypertension; E78.1 Pure hyperglyceridemia; I08.1 Rheumatic disorders of both mitral and tricuspid valves; D50.9 Iron deficiency anemia, unspecified; E66.9 Obesity, unspecified; Z68.35 Body mass index [BMI] 35.0-35.9, adult; Z79.84 Long term (current) use of oral hypoglycemic drugs
CPT/HCPCS: 36415; 70450; 70551; 80053; 80061; 83735; 84484; 84703; 85025; 93005; 93306; 93880; G0378

== ENCOUNTER 2023-09-02 13:10 | Outpatient (CLI) | payer BC | END 2023-09-02 13:11 | disposition home or self-care (01) | LOC: SCSRAD 13:10 | PROVIDERS: ATTEND Nurse Practitioner Family | DX: M79.641 Pain in right hand (principal); M89.9 Disorder of bone, unspecified ==

== ENCOUNTER 2024-03-06 12:55 | Emergency (ER) | payer BC ==
[2024-03-06 14:07] LABS: Hematocrit 34.5 % (36.0-47.0); Hemoglobin 9.4 g/dL (12.0-16.0); Mean Corpuscular HGB CONC 27.2 g/dL (32.0-36.0); Mean Corpuscular Volume 69.7 fL (78.0-98.0); Mean Platelet Volume 9.5 fL (7.4-10.4); Platelet Count 472 10x3/uL (130-400); RBC Distribution Width 22.8 % (11.5-14.5); Red Blood Cell (RBC) Count 4.95 mill/uL (4.20-5.40)
[2024-03-06 14:26] LABS: BHCG - Serum Negative (NEGATIVE); Pregs Control Background? CLEAR/WHITE (CLR/WHITE); Pregs Control Bar Appear? YES (CONTROL BAR)
[2024-03-06 14:29] LABS: ALT (SGPT) 20 U/L (8-55); AST (SGOT) 39 U/L (5-34); Albumin 3.7 g/dL (3.5-5.0); Alkaline Phosphatase 66 U/L (40-110); Anion Gap 13 mmol/L (10-20); BUN (Urea Nitrogen) 10 mg/dL (7.0-18.7); Bilirubin, Total 0.2 mg/dL (0.2-1.2); Calc. Creatinine Clearance 0 mL/min (70-130); Calcium 9.1 mg/dL (7.8-10.44); Carbon Dioxide 20 mmol/L (22-29); Chloride 107 mmol/L (98-107); Estimated GFR 93; Globulin 4.5 g/dL (2.4-3.5); Glucose 221 mg/dL (70-105); Lipase 40 U/L (8-78); Potassium 4.2 mmol/L (3.5-5.1); Protein, Total 8.2 g/dL (6.0-8.3); Sodium 136 mmol/L (136-145)
[2024-03-06 14:32] LABS: #Basophils 0.05 10x3/uL (0.0-0.2); %Basophils 0.6 % (0.0-1.0); %Eosinophils 1.7 % (0.0-10.0); %Lymphocytes 41.4 % (21.0-51.0); %Monocytes 4.1 % (0.0-10.0)
[2024-03-06 14:37] LABS: Elliptocytes SLIGHT = 2-5 cells HPF (0-1); Microcytosis SLIGHT = 6-15 cells HPF (0-5); Platelet Adequacy Comment Platelets Increased; Polychromasia SLIGHT = 2-3 cells HPF (0-2); Tear Drops SLIGHT = 2-5 cells HPF (0-1)
[2024-03-06 15:07] LABS: Bacteria/HPF 3+ HPF (None Seen); Bilirubin Negative (Negative); Blood, Urine 1+ (Negative); CAUTI Indications for Culture Dysuria,urgency,freq; Clarity Clear (Clear); Glucose, Urine (Dipstick) 50 mg/dL (Negative); Ketone, Urine Negative (Negative); Leukocyte Negative Leu/uL (Negative); Mucous/LPF Rare LPF (<2+); Nitrite Negative (Negative); Protein, Urine (Dipstick) 10 mg/dL (Neg-Trace); RBC/HPF None Seen HPF (0-3); Specific Gravity, Urine 1.019 (1.002-1.036); Urobilinogen Normal mg/dL (Less than 2); WBC/HPF 0-3 HPF (0-3)
[2024-03-06 15:09] LABS: Urine Culture Reflex No No
[2024-03-06] MEDS ORDERED: Ondansetron PF 4 MG/2 ML Vial ONE (15:16)
[2024-03-06] MEDS ORDERED: Ketorolac Tromethamine 30 MG (1 mL) VIAL ONE (15:16)
[2024-03-06 21:14] LABS: Chlamydia by PCR, Vaginal Swab Not Detected (NotDetected); GC by PCR, Vaginal Swab Not Detected (NotDetected)
== END 2024-03-06 18:12 | disposition home or self-care (01) ==
LOC: ERS 12:55
DX: N83.201 Unspecified ovarian cyst, right side (principal); N20.0 Calculus of kidney; D64.9 Anemia, unspecified; E11.65 Type 2 diabetes mellitus with hyperglycemia; Z87.891 Personal history of nicotine dependence
CPT/HCPCS: 36415; 74177; 76856; 80053; 81001; 83690; 84703; 85025; 87480; 87491; 87510; 87591; 87660; 96374; 96375; J1885; J2405

== ENCOUNTER 2024-11-18 18:54 | Emergency (ER) | payer BC ==
[2024-11-18 19:33] LABS: #Basophils 0.06 10x3/uL (0.0-0.2); #Eosinophils 0.24 10x3/uL (0.0-0.7); #Monocytes 0.49 10x3/uL (0.11-0.59); #Neutrophils 7.16 10x3/uL (1.40-6.50); %Basophils 0.5 % (0.0-1.0); %Eosinophils 2.1 % (0.0-10.0); %Lymphocytes 30.8 % (21.0-51.0); %Monocytes 4.2 % (0.0-10.0); %Neutrophils 62.1 % (42.0-75.0); Hematocrit 34.8 % (36.0-47.0); Hemoglobin 10.0 g/dL (12.0-16.0); Mean Corpuscular Hemoglobin 19.2 pg (27.0-31.0); Mean Corpuscular Volume 66.9 fL (78.0-98.0); Platelet Count 476 10x3/uL (130-400); Red Blood Cell (RBC) Count 5.20 mill/uL (4.20-5.40); White Blood Cell (WBC) Count 11.55 10x3/uL (4.8-10.8)
[2024-11-18 19:38] LABS: BHCG - Serum Negative (NEGATIVE); Pregs Control Background? CLEAR/WHITE (CLR/WHITE); Pregs Control Bar Appear? YES (CONTROL BAR)
[2024-11-18] MEDS ORDERED: Dicyclomine 20 MG TAB ONE (19:42)
[2024-11-18] MEDS ORDERED: Ketorolac Tromethamine 30 MG (1 mL) VIAL ONE (19:43)
[2024-11-18] MEDS ORDERED: Famotidine/PF 20 mg/2ml Vial ONE (19:43)
[2024-11-18 19:45] LABS: ALT (SGPT) 49 U/L (Less than 34); AST (SGOT) 86 U/L (11-34); Albumin 3.9 g/dL (3.1-4.5); Alkaline Phosphatase 70 U/L (40-110); Anion Gap 16 mmol/L (10-20); BUN (Urea Nitrogen) 11 mg/dL (7.0-18.7); Bilirubin, Total 0.2 mg/dL (0.3-1.2); Calc. Creatinine Clearance 0 mL/min (70-130); Calcium 8.7 mg/dL (7.8-10.44); Carbon Dioxide 20 mmol/L (22-29); Chloride 105 mmol/L (98-107); Globulin 4.6 g/dL (2.4-3.5); Glucose 224 mg/dL (70-105); Lipase 45 U/L (8-78); Potassium 3.8 mmol/L (3.5-5.1); Sodium 137 mmol/L (136-145)
[2024-11-18 20:07] LABS: Bacteria/HPF None Seen HPF (None Seen); CAUTI Indications for Culture Pelvic or flank pain; Glucose, Urine (Dipstick) Normal (Negative); Leukocyte 25 Leu/uL (Negative); Protein, Urine (Dipstick) 10 mg/dL (Neg-Trace); RBC/HPF 0-3 HPF (0-3); Specific Gravity, Urine 1.026 (1.002-1.036)
[2024-11-18 20:09] LABS: Urine Culture Reflex No No
== END 2024-11-18 21:35 | disposition home or self-care (01) ==
LOC: ERS 18:54
DX: R10.84 Generalized abdominal pain (principal); E11.65 Type 2 diabetes mellitus with hyperglycemia; R79.89 Other specified abnormal findings of blood chemistry; Z87.891 Personal history of nicotine dependence; Z79.84 Long term (current) use of oral hypoglycemic drugs; Z55.6 Problems related to health literacy
CPT/HCPCS: 36415; 74177; 80053; 81001; 83690; 84703; 85025; 96361; 96374; 96375; J1308; J1885; Q9967